=== PATIENT | female | born 1995 | race Caucasian/White ===

== ENCOUNTER 2023-03-11 13:02 | Emergency (ER) | payer OTHER, SELFPAY ==
[2023-03-11 13:05] VITALS: BP 159/102; PULSE 91; RESP 18; TEMP 36.3; O2SAT 100; BMI 31.2
--- NOTE | 2023-03-11 13:05 | ED_ITS ---
HPI - Psych General Chief Complaint: Psychiatric Symptoms <Leslee Duarte NP - Last Filed: 03/11/23 14:29> Stated Complaint: Crisis <Leslee Duarte NP - Last Filed: 03/11/23 14:29> Time Seen by Provider: 03/11/23 13:07 <Leslee Duarte NP - Last Filed: 03/11/23 14:29> Source: patient, RN notes reviewed and old records reviewed <Leslee Duarte NP - Last Filed: 03/11/23 14:29> Mode of arrival: ambulatory <Leslee Duarte NP - Last Filed: 03/11/23 14:29> Limitations: no limitations <Leslee Duarte NP - Last Filed: 03/11/23 14:29> History of Present Illness HPI Narrative: Patient is a 27-year-old female with history of PTSD, MDD, bipolar to presenting to the emergency department from [facility] with suicidal ideation with plan to overdose on her medications as well as self harm in the form of cutting. She also reports poor sleep patterns recently. She denies any thoughts of homicidal ideation. She denies any somatic complaints. <Leslee Duarte NP - Last Filed: 03/11/23 14:29> MD complaint: suicidal ideation <Leslee Duarte NP - Last Filed: 03/11/23 14:29> Onset (ago): day(s) <EDUARDA Yu Last Filed: 03/11/23 14:29> Duration: constant <Leslee Duarte NP - Last Filed: 03/11/23 14:29> History of same: Yes <Leslee Duarte NP - Last Filed: 03/11/23 14:29> Relieving factors: none <Leslee Duarte NP - Last Filed: 03/11/23 14:29> Exacerbating factors: none <Leslee Duarte NP - Last Filed: 03/11/23 14:29> Associated psychiatric symptoms: depression and suicidal ideation <EDUARDA Yu Last Filed: 03/11/23 14:29> Associated symptoms: denies other symptoms <Leslee Duarte NP - Last Filed: 03/11/23 14:29> Treatments prior to arrival: other (in partial program) <EDUARDA Yu Last Filed: 03/11/23 14:29> If self harm: admits thoughts of self harm, has plan and self-inflicted trauma <EDUARDA Yu Last Filed: 03/11/23 14:29> Related Data Home Medications: Home Medications Medication Instructions Recorded Confirmed lamotrigine 100 mg tablet 100 mg PO BID 03/03/23 03/11/23 Previous Rx's Medication Instructions Recorded quetiapine 50 mg tablet,extended 100 mg PO BEDTIME #14 tabs 03/03/23 release 24 hr (Seroquel XR) mirtazapine 7.5 mg tablet 7.5 mg PO BEDTIME #14 tabs 03/09/23 <EDUARDA Yu Last Filed: 03/11/23 14:29> Allergies/Adverse Reactions: Allergies Allergy/AdvReac Type Severity Reaction Status Date / Time amoxicillin Allergy Severe Vomiting Verified 03/11/23 14:37 <Leslee Duarte NP - Last Filed: 03/11/23 14:29> Review of Systems Review of Systems: As per HPI <EDUARDA Yu Last Filed: 03/11/23 14:29> Yes all other systems are reviewed and are negative <EDUARDA Yu Last Filed: 03/11/23 14:29> Constitutional: Constitutional: Reports as per HPI <EDUARDA Yu Last Filed: 03/11/23 14:29> Gastrointestinal: Gastrointestinal: Denies abdominal pain <EDUARDA Yu Last Filed: 03/11/23 14:29> Genitourinary: Genitourinary: Reports no additional female genitourinary complaints <Leslee Duarte NP - Last Filed: 03/11/23 14:29> Musculoskeletal: Musculoskeletal: Denies back pain <EDUARDA Yu Last Filed: 03/11/23 14:29> PMFSH Past Medical History Medical History: Medical History No known health problems <Leslee Duarte NP - Last Filed: 03/11/23 14:29> Social History Social History: Social History Household Members: Family Alcohol intake: current Alcohol intake frequency: holidays/special occasions only Patient Tobacco Use Status: Never used Tobacco Smoked in Last 30 Days: No Use of substances other than those prescribed or required for medical reasons: Yes Substance Use Type: Marijuana Substance Use Frequency: Occasionally Last Used Substance: Unknown Advance Directives: No <Leslee Duarte NP - Last Filed: 03/11/23 14:29> Physical Exam Vital Signs: Vital Signs: Last Vital Signs Temp 97.2 F 03/11/23 21:09 Pulse 70 03/11/23 21:09 Resp 18 03/11/23 21:09 BP 139/97 H 03/11/23 21:09 Pulse Ox 99 03/11/23 21:09 O2 Del Method Room Air 03/11/23 21:09 BMI result Body Mass Index 31.2 <Leslee Duarte NP - Last Filed: 03/11/23 14:29> Vital Signs: Last Vital Signs Temp 97.2 F 03/11/23 21:09 Pulse 70 03/11/23 21:09 Resp 18 03/11/23 21:09 BP 139/97 H 03/11/23 21:09 Pulse Ox 99 03/11/23 21:09 O2 Del Method Room Air 03/11/23 21:09 BMI result Body Mass Index 31.2 <MAIRA Carbajal - Last Filed: 03/11/23 13:09> Vital Signs: Last Vital Signs Temp 97.2 F 03/11/23 21:09 Pulse 70 03/11/23 21:09 Resp 18 03/11/23 21:09 BP 139/97 H 03/11/23 21:09 Pulse Ox 99 03/11/23 21:09 O2 Del Method Room Air 03/11/23 21:09 BMI result Body Mass Index 31.2 <Gaye Stearns MD - Last Filed: 03/11/23 22:16> Const: General: cooperative, healthy appearing and no acute distress <Leslee Duarte NP - Last Filed: 03/11/23 14:29> Orientation/consciousness: oriented to person, oriented to place, oriented to time and patient oriented x3 <Leslee Duarte NP - Last Filed: 03/11/23 14:29> Limitations: no limitations <Leslee Duarte NP - Last Filed: 03/11/23 14:29> HEENT: Head: Yes normocephalic and Yes atraumatic <Leslee Duarte NP - Last Filed: 03/11/23 14:29> Ears: external ears normal <Leslee Duarte NP - Last Filed: 03/11/23 14:29> General nose exam: Normal external nose present <Leslee Duarte NP - Last Filed: 03/11/23 14:29> Face and sinus: Yes face symmetric <Leslee Duarte NP - Last Filed: 02/23 05/17 14:29> Mouth: oropharynx normal and moist mucous membranes <Leslee Duarte NP - Last Filed: 03/11/23 14:29> Throat: Yes uvula midline <Leslee Duarte NP - Last Filed: 03/11/23 14:29> Eyes: Pupils: Equal, round and reactive pupils present <Leslee Duarte NP - Last Filed: 03/11/23 14:29> Neck: Neck: Yes normal visual inspection and Yes supple <Leslee Duarte NP - Last Filed: 03/11/23 14:29> Resp: Effort & Inspection: normal respiratory effort and able to speak in complete sentences <Leslee Duarte NP - Last Filed: 03/11/23 14:29> Auscultation: clear to auscultation bilaterally <Leslee Duarte NP - Last Filed: 03/11/23 14:29> Cardio: Rate: regular rate <Leslee Duarte NP - Last Filed: 03/11/23 14:29> Rhythm: regular rhythm <Leslee Duarte NP - Last Filed: 03/11/23 14:29> Heart sounds: S1 normal heart sound present and S2 normal heart sound present <Leslee Duarte NP - Last Filed: 03/11/23 14:29> GI: Palpation (GI): Soft to palpation and nontender <Leslee Duarte NP - Last Filed: 03/11/23 14:29> Auscultation: normoactive bowel sounds <Leslee Duarte NP - Last Filed: 03/11/23 14:29> : General: Yes no CVA tenderness <Leslee Duarte NP - Last Filed: 03/11/23 14:29> Back/Spine/Pelvis: Back: no CVA tenderness <Leslee Duarte NP - Last Filed: 03/11/23 14:29> Skin: Other: linear scars noted to bilateral arms and legs <Leslee Duarte NP - Last Filed: 03/11/23 14:29> General skin exam: elasticity normal and turgor normal <Leslee Duarte NP - Last Filed: 03/11/23 14:29> Trauma: laceration (superficial lacerations to right leg and left shoulder) <Leslee Duarte NP - Last Filed: 03/11/23 14:29> Neuro: General: oriented to person, oriented to place, oriented to time, patient oriented x3, moves all extremities, no focal motor deficits and CN's II- XI intact bilaterally <Leslee Duarte NP - Last Filed: 03/11/23 14:29> Cranial nerves: Yes Equal, round and reactive pupils present <Leslee Duarte NP - Last Filed: 03/11/23 14:29> Cognition (Neuro): normal cognition <Leslee Duarte NP - Last Filed: 03/11/23 14:29> Extrem: General: Yes full ROM, Yes no pedal edema and Yes no calf tenderness <Leslee Duarte NP - Last Filed: 03/11/23 14:29> Psych: Appearance: grossly normal <Leslee Duarte NP - Last Filed: 03/11/23 14:29> Mental Status: mental status grossly normal <Leslee Duarte NP - Last Fi led: 03/11/23 14:29> Speech and movement: Normal speech and movement present <Leslee Duarte NP - Last Filed: 03/11/23 14:29> Affect: normal affect <Leslee Duarte NP - Last Filed: 03/11/23 14:29> Attitude: cooperative <Leslee Duarte NP - Last Filed: 03/11/23 14:29> Thought process: Normal thought process present <Leslee Duarte NP - Last Filed: 03/11/23 14:29> Thought content: Suicidality present, no homicidality, no delusions, No delusions, no hallucinations and Depressive thoughts present <Leslee Duarte NP - Last Filed: 03/11/23 14:29> Course Course Course Narrative: RME patient is a 27 yo female with a PMH of PTSD, anxiety, and Bipolar 2 who states she has not been feeling safe, and has a hx of self- harm. She states she has been feeling very depressed. She is having thoughts of self-harm, but no SI or HI. She is in a partial program. Plan: Medical clearance and care-team evaluation <MAIRA Carbajal - Last Filed: 03/11/23 13:09> RME patient is a 27 yo female with a PMH of PTSD, anxiety, and Bipolar 2 w ho states she has not been feeling safe, and has a hx of self- harm. She states she has been feeling very depressed. She is having thoughts of self-harm, but no SI or HI. She is in a partial program. Plan: Medical clearance and care-team evaluation Care team evaluated the patient, patient is not suicidal, patient has had an urge to cut herself to release pressure. Patient no longer has the urge. Patient will be going to partial rehab tomorrow. Family on board with plan. Patient agrees with plan as well. <Gaye Stearns MD - Last Filed: 03/11/23 22:16> Medical Decision Making Medical Decision Making MDM Narrative: Patient is a 27-year-old female with history of PTSD, MDD, bipolar to presenting to the emergency department from [facility] with suicidal ideation with plan to overdose on her medications as well as self harm in the form of cutting. On exam patient is awake, A+Ox3, calm and cooperative, VS WNL, normal neuro exam without focal deficits. Urinalysis reveals 3+ leukocytes and 2+ blood, however patient denies any urinary symptoms, abdominal pain, back or flank pain, fever. Mildly elevated ALT, labs otherwise unremarkable, utox negative. Order placed for Care team evaluation. Patient medically cleared and placed in physician obs ervation. <Leslee Duarte NP - Last Filed: 03/11/23 14:29> Differential Diagnosis Differential Diagnoses: The differential diagnosis associated with the presentation includes <Domonique Duarte NP - Last Filed: 03/11/23 14:29> suicidal ideation, thoughts of self harm, bipolar disorder <Leslee Duarte NP - Last Filed: 03/11/23 14:29> Admission/Observation Consideration of admission/observation: Escalation of care including admission/observation considered <Leslee Duarte NP - Last Filed: 03/11/23 14:29> Consult Healthcare Provider Management of the patient was discussed with: Water Treatment Specialist (Care team) <Leslee Duarte NP - Last Filed: 03/11/23 14:29> Lab Data MDM Lab Attestation statement: I reviewed the patient's lab results. <Leslee Duarte NP - Last Filed: 03/11/23 14:29> Result Diagrams: 03/11/23 13:50 03/11/23 13:50 <Leslee Duarte NP - Last Filed: 03/11/23 14:29> Labs: Lab Results 03/11/23 03/11/23 03/11/23 Range/Units 13:21 13:21 13:22 WBC (4.8-10.8) X10*3/uL RBC (4.20-5.50) X10*6/uL Hgb (12.0-16.0) g/dl Hct (37.0-47.0) % MCV (80.0-98.0) fL MCH (27.0-33.0) pg MCHC (31.0-35.0) g/dl RDW (11.0-16.0) % Plt Count (160-400) X10*3/uL MPV (9.4-12.3) fL Immature Gran % (Auto) (0.0-0.4) % Neut % (Auto) (45-73) % Lymph % (Auto) (20-40) % Mcdonald % (Auto) (2-11) % Eos % (Auto) (0-4) % Baso % (Auto) (0-2) % Lymph # (Auto) (1.2-4.9) X10*3/uL Mcdonald # (Auto) (0.1-1.2) X10*3/uL Eos # (Auto) (0.0-0.4) X10*3/uL Baso # (Auto) (0.0-0.2) X10*3/uL Abs Immat Gran (auto) (0.00-0.03) X10*3/uL Absolute Neuts (auto) (2.0-8.3) x10*3/uL Absolute Nucleated RBC (0.0-0.012) X10*3/uL Nucleated RBC % (auto) (0.0-0.2) /100WBC Sodium (135-145) mmol/L Potassium (3.3-5.1) mmol/L Chloride (96-108) mmol/L Carbon Dioxide (22-29) mmol/L Anion Gap (12-20) BUN (9-16) mg/dL Creatinine (0.5-1.4) mg/dL Estim Creat Clear Calc Estimated GFR Random Glucose (60-115) mg/dL Calcium (8.4-10.2) mg/dL Magnesium (1.6-2.6) mg/dL Total Bilirubin (0.0-1.0) mg/dL Direct Bilirubin (0.0-0.5) mg/dL AST (5-31) U/L ALT (0-31) U/L Alkaline Phosphatase (39-117) U/L Total Protein (6.5-8.0) g/dL Albumin (3.5-5.0) g/dL Urine Color Yellow Urine Appearance Cloudy Urine pH 6.0 (5.0-9.0) Ur Specific [place] 1.020 (1.005-1.025) Urine Protein Negative (Neg-Trace) mg/dL Urine Glucose (UA) Negative (Negative) mg/dL Urine Ketones 40 (Negative) mg/dL Urine Blood Moderate (2+) H (Negative) Urine Nitrite Negative (Negative) Ur Leukocyte Esterase Large (3+) H (Negative) Urine RBC 11-20 H (0-2) /HPF Urine WBC >50 H (0-5) /HPF Ur Squamous Epith Cells 6-10 (0-2) /HPF Urine Bacteria 3+ (None Seen) Hyaline Casts 3-5 (0-2) /LPF Urine Test (NEGATIVE) Urine Opiates Screen Not Detected (Not Detect) Urine Fentanyl Screen Not Detected (Not Detect) Ur Barbiturates Screen Not Detected (Not Detect) Ur Phencyclidine Scrn Not Detected (Not Detect) Ur Amphetamines Screen Not Detected (Not Detect) U Benzodiazepines Scrn Not Detected (Not Detect) Urine Cocaine Screen Not Detected (Not Detect) U Marijuana (THC) Screen Not Detected (Not Detect) Ethyl Alcohol mg/dL COVID-19 (DARSHANA) Negative (Negative) COVID-19 Clin Com See Note 03/11/23 03/11/23 03/11/23 Range/Units 13:22 13:50 13:50 WBC 5.0 (4.8-10.8) X10*3/uL RBC 4.28 (4.20-5.50) X10*6/uL Hgb 12.2 (12.0-16.0) g/dl Hct 35.8 L (37.0-47.0) % MCV 83.6 (80.0-98.0) fL MCH 28.5 (27.0-33.0) pg MCHC 34.1 (31.0-35.0) g/dl RDW 14.4 (11.0-16.0) % Plt Count 174 (160-400) X10*3/uL MPV 10.9 (9.4-12.3) fL Immature Gran % (Auto) 0.2 (0.0-0.4) % Neut % (Auto) 70.1 (45-73) % Lymph % (Auto) 26.5 (20-40) % Mcdonald % (Auto) 3.0 (2-11) % Eos % (Auto) 0.0 (0-4) % Baso % (Auto) 0.2 (0-2) % Lymph # (Auto) 1.3 (1.2-4.9) X10*3/uL Mcdonald # (Auto) 0.2 (0.1-1.2) X10*3/uL Eos # (Auto) 0.0 (0.0-0.4) X10*3/uL Baso # (Auto) 0.0 (0.0-0.2) X10*3/uL Abs Immat Gran (auto) 0.01 (0.00-0.03) X10*3/uL Absolute Neuts (auto) 3.5 (2.0-8.3) x10*3/uL Absolute Nucleated RBC 0.000 (0.0-0.012) X10*3/uL Nucleated RBC % (auto) 0.0 (0.0-0.2) /100WBC Sodium 140 (135-145) mmol/L Potassium 3.7 (3.3-5.1) mmol/L Chloride 106 (96-108) mmol/L Carbon Dioxide 24 (22-29) mmol/L Anion Gap 14 (12-20) BUN 8 L (9-16) mg/dL Creatinine 0.89 (0.5-1.4) mg/dL Estim Creat Clear Calc 96.9 Estimated GFR > 60 Random Glucose 122 H (60-115) mg/dL Calcium 9.7 (8.4-10.2) mg/dL Magnesium 1.9 (1.6-2.6) mg/dL Total Bilirubin 0.9 (0.0-1.0) mg/dL Direct Bilirubin 0.2 (0.0-0.5) mg/dL AST 30 (5-31) U/L ALT 45 H (0-31) U/L Alkaline Phosphatase 56 (39-117) U/L Total Protein 7.5 (6.5-8.0) g/dL Albumin 4.9 (3.5-5.0) g/dL Urine Color Urine Appearance Urine pH (5.0-9.0) Ur Specific [place] (1.005-1.025) Urine Protein (Neg-Trace) mg/dL Urine Glucose (UA) (Negative) mg/dL Urine Ketones (Negative) mg/dL Urine Blood (Negative) Urine Nitrite (Negative) Ur Leukocyte Esterase (Negative) Urine RBC (0-2) /HPF Urine WBC (0-5) /HPF Ur Squamous Epith Cells (0-2) /HPF Urine Bacteria (None Seen) Hyaline Casts (0-2) /LPF Urine Test NEGATIVE (NEGATIVE) Urine Opiates Screen (Not Detect) Urine Fentanyl Screen (Not Detect) Ur Barbiturates Screen (Not Detect) Ur Phencyclidine Scrn (Not Detect) Ur Amphetamines Screen (Not Detect) U Benzodiazepines Scrn (Not Detect) Urine Cocaine Screen (Not Detect) U Marijuana (THC) Screen (Not Detect) Ethyl Alcohol < 10 mg/dL COVID-19 (DARSHANA) (Negative) COVID-19 Clin Com <Leslee Duarte NP - Last Filed: 03/11/23 14:29> Lab Results 03/11/23 03/11/23 03/11/23 Range/Units 13:21 13:21 13:22 WBC (4.8-10.8) X10*3/uL RBC (4.20-5.50) X10*6/uL Hgb (12.0-16.0) g/dl Hct (37.0-47.0) % MCV (80.0-98.0) fL MCH (27.0-33.0) pg MCHC (31.0-35.0) g/dl RDW (11.0-16.0) % Plt Count (160-400) X10*3/uL MPV (9.4-12.3) fL Immature Gran % (Auto) (0.0-0.4) % Neut % (Auto) (45-73) % Lymph % (Auto) (20-40) % Mcdonald % (Auto) (2-11) % Eos % (Auto) (0-4) % Baso % (Auto) (0-2) % Lymph # (Auto) (1.2-4.9) X10*3/uL Mcdonald # (Auto) (0.1-1.2) X10*3/uL Eos # (Auto) (0.0-0.4) X10*3/uL Baso # (Auto) (0.0-0.2) X10*3/uL Abs Immat Gran (auto) (0.00-0.03) X10*3/uL Absolute Neuts (auto) (2.0-8.3) x10*3/uL Absolute Nucleated RBC (0.0-0.012) X10*3/uL Nucleated RBC % (auto) (0.0-0.2) /100WBC Sodium (135-145) mmol/L Potassium (3.3-5.1) mmol/L Chloride (96-108) mmol/L Carbon Dioxide (22-29) mmol/L Anion Gap (12-20) BUN (9-16) mg/dL Creatinine (0.5-1.4) mg/dL Estim Creat Clear Calc Estimated GFR Random Glucose (60-115) mg/dL Calcium (8.4-10.2) mg/dL Magnesium (1.6-2.6) mg/dL Total Bilirubin (0.0-1.0) mg/dL Direct Bilirubin (0.0-0.5) mg/dL AST (5-31) U/L ALT (0-31) U/L Alkaline Phosphatase (39-117) U/L Total Protein (6.5-8.0) g/dL Albumin (3.5-5.0) g/dL Urine Color Yellow Urine Appearance Cloudy Urine pH 6.0 (5.0-9.0) Ur Specific [place] 1.020 (1.005-1.025) Urine Protein Negative (Neg-Trace) mg/dL Urine Glucose (UA) Negative (Negative) mg/dL Urine Ketones 40 (Negative) mg/dL Urine Blood Moderate (2+) H (Negative) Urine Nitrite Negative (Negative) Ur Leukocyte Esterase Large (3+) H (Negative) Urine RBC 11-20 H (0-2) /HPF Urine WBC >50 H (0-5) /HPF Ur Squamous Epith Cells 6-10 (0-2) /HPF Urine Bacteria 3+ (None Seen) Hyaline Casts 3-5 (0-2) /LPF Urine Test (NEGATIVE) Urine Opiates Screen Not Detected (Not Detect) Urine Fentanyl Screen Not Detected (Not Detect) Ur Barbiturates Screen Not Detected (Not Detect) Ur Phencyclidine Scrn Not Detected (Not Detect) Ur Amphetamines Screen Not Detected (Not Detect) U Benzodiazepines Scrn Not Detected (Not Detect) Urine Cocaine Screen Not Detected (Not Detect) U Marijuana (THC) Screen Not Detected (Not Detect) Ethyl Alcohol mg/dL COVID-19 (DARSHANA) Negative (Negative) COVID-19 Clin Com See Note 03/11/23 03/11/23 03/11/23 Range/Units 13:22 13:50 13:50 WBC 5.0 (4.8-10.8) X10*3/uL RBC 4.28 (4.20-5.50) X10*6/uL Hgb 12.2 (12.0-16.0) g/dl Hct 35.8 L (37.0-47.0) % MCV 83.6 (80.0-98.0) fL MCH 28.5 (27.0-33.0) pg MCHC 34.1 (31.0-35.0) g/dl RDW 14.4 (11.0-16.0) % Plt Count 174 (160-400) X10*3/uL MPV 10.9 (9.4-12.3) fL Immature Gran % (Auto) 0.2 (0.0-0.4) % Neut % (Auto) 70.1 (45-73) % Lymph % (Auto) 26.5 (20-40) % Mcdonald % (Auto) 3.0 (2-11) % Eos % (Auto) 0.0 (0-4) % Baso % (Auto) 0.2 (0-2) % Lymph # (Auto) 1.3 (1.2-4.9) X10*3/uL Mcdonald # (Auto) 0.2 (0.1-1.2) X10*3/uL Eos # (Auto) 0.0 (0.0-0.4) X10*3/uL Baso # (Auto) 0.0 (0.0-0.2) X10*3/uL Abs Immat Gran (auto) 0.01 (0.00-0.03) X10*3/uL Absolute Neuts (auto) 3.5 (2.0-8.3) x10*3/uL Absolute Nucleated RBC 0.000 (0.0-0.012) X10*3/uL Nucleated RBC % (auto) 0.0 (0.0-0.2) /100WBC Sodium 140 (135-145) mmol/L Potassium 3.7 (3.3-5.1) mmol/L Chloride 106 (96-108) mmol/L Carbon Dioxide 24 (22-29) mmol/L Anion Gap 14 (12-20) BUN 8 L (9-16) mg/dL Creatinine 0.89 (0.5-1.4) mg/dL Estim Creat Clear Calc 96.9 Estimated GFR > 60 Random Glucose 122 H (60-115) mg/dL Calcium 9.7 (8.4-10.2) mg/dL Magnesium 1.9 (1.6-2.6) mg/dL Total Bilirubin 0.9 (0.0-1.0) mg/dL Direct Bilirubin 0.2 (0.0-0.5) mg/dL AST 30 (5-31) U/L ALT 45 H (0-31) U/L Alkaline Phosphatase 56 (39-117) U/L Total Protein 7.5 (6.5-8.0) g/dL Albumin 4.9 (3.5-5.0) g/dL Urine Color Urine Appearance Urine pH (5.0-9.0) Ur Specific [place] (1.005-1.025) Urine Protein (Neg-Trace) mg/dL Urine Glucose (UA) (Negative) mg/dL Urine Ketones (Negative) mg/dL Urine Blood (Negative) Urine Nitrite (Negative) Ur Leukocyte Esterase (Negative) Urine RBC (0-2) /HPF Urine WBC (0-5) /HPF Ur Squamous Epith Cells (0-2) /HPF Urine Bacteria (None Seen) Hyaline Casts (0-2) /LPF Urine Test NEGATIVE (NEGATIVE) Urine Opiates Screen (Not Detect) Urine Fentanyl Screen (Not Detect) Ur Barbiturates Screen (Not Detect) Ur Phencyclidine Scrn (Not Detect) Ur Amphetamines Screen (Not Detect) U Benzodiazepines Scrn (Not Detect) Urine Cocaine Screen (Not Detect) U Marijuana (THC) Screen (Not Detect) Ethyl Alcohol < 10 mg/dL COVID-19 (DARSHANA) (Negative) COVID-19 Clin Com <MAIRA Carbajal - Last Filed: 03/11/23 13:09> Lab Results 03/11/23 03/11/23 03/11/23 Range/Units 13:21 13:21 13:22 WBC (4.8-10.8) X10*3/uL RBC (4.20-5.50) X10*6/uL Hgb (12.0-16.0) g/dl Hct (37.0-47.0) % MCV (80.0-98.0) fL MCH (27.0-33.0) pg MCHC (31.0-35.0) g/dl RDW (11.0-16.0) % Plt Count (160-400) X10*3/uL MPV (9.4-12.3) fL Immature Gran % (Auto) (0.0-0.4) % Neut % (Auto) (45-73) % Lymph % (Auto) (20-40) % Mcdonald % (Auto) (2-11) % Eos % (Auto) (0-4) % Baso % (Auto) (0-2) % Lymph # (Auto) (1.2-4.9) X10*3/uL Mcdonald # (Auto) (0.1-1.2) X10*3/uL Eos # (Auto) (0.0-0.4) X10*3/uL Baso # (Auto) (0.0-0.2) X10*3/uL Abs Immat Gran (auto) (0.00-0.03) X10*3/uL Absolute Neuts (auto) (2.0-8.3) x10*3/uL Absolute Nucleated RBC (0.0-0.012) X10*3/uL Nucleated RBC % (auto) (0.0-0.2) /100WBC Sodium (135-145) mmol/L Potassium (3.3-5.1) mmol/L Chloride (96-108) mmol/L Carbon Dioxide (22-29) mmol/L Anion Gap (12-20) BUN (9-16) mg/dL Creatinine (0.5-1.4) mg/dL Estim Creat Clear Calc Estimated GFR Random Glucose (60-115) mg/dL Calcium (8.4-10.2) mg/dL Magnesium (1.6-2.6) mg/dL Total Bilirubin (0.0-1.0) mg/dL Direct Bilirubin (0.0-0.5) mg/dL AST (5-31) U/L ALT (0-31) U/L Alkaline Phosphatase (39-117) U/L Total Protein (6.5-8.0) g/dL Albumin (3.5-5.0) g/dL Urine Color Yellow Urine Appearance Cloudy Urine pH 6.0 (5.0-9.0) Ur Specific [place] 1.020 (1.005-1.025) Urine Protein Negative (Neg-Trace) mg/dL Urine Glucose (UA) Negative (Negative) mg/dL Urine Ketones 40 (Negative) mg/dL Urine Blood Moderate (2+) H (Negative) Urine Nitrite Negative (Negative) Ur Leukocyte Esterase Large (3+) H (Negative) Urine RBC 11-20 H (0-2) /HPF Urine WBC >50 H (0-5) /HPF Ur Squamous Epith Cells 6-10 (0-2) /HPF Urine Bacteria 3+ (None Seen) Hyaline Casts 3-5 (0-2) /LPF Urine Test (NEGATIVE) Urine Opiates Screen Not Detected (Not Detect) Urine Fentanyl Screen Not Detected (Not Detect) Ur Barbiturates Screen Not Detected (Not Detect) Ur Phencyclidine Scrn Not Detected (Not Detect) Ur Amphetamines Screen Not Detected (Not Detect) U Benzodiazepines Scrn Not Detected (Not Detect) Urine Cocaine Screen Not Detected (Not Detect) U Marijuana (THC) Screen Not Detected (Not Detect) Ethyl Alcohol mg/dL COVID-19 ([facility]) Negative (Negative) COVID-19 Clin Com See Note 03/11/23 03/11/23 03/11/23 Range/Units 13:22 13:50 13:50 WBC 5.0 (4.8-10.8) X10*3/uL RBC 4.28 (4.20-5.50) X10*6/uL Hgb 12.2 (12.0-16.0) g/dl Hct 35.8 L (37.0-47.0) % MCV 83.6 (80.0-98.0) fL MCH 28.5 (27.0-33.0) pg MCHC 34.1 (31.0-35.0) g/dl RDW 14.4 (11.0-16.0) % Plt Count 174 (160-400) X10*3/uL MPV 10.9 (9.4-12.3) fL Immature Gran % (Auto) 0.2 (0.0-0.4) % Neut % (Auto) 70.1 (45-73) % Lymph % (Auto) 26.5 (20-40) % Mcdonald % (Auto) 3.0 (2-11) % Eos % (Auto) 0.0 (0-4) % Baso % (Auto) 0.2 (0-2) % Lymph # (Auto) 1.3 (1.2-4.9) X10*3/uL Mcdonald # (Auto) 0.2 (0.1-1.2) X10*3/uL Eos # (Auto) 0.0 (0.0-0.4) X10*3/uL Baso # (Auto) 0.0 (0.0-0.2) X10*3/uL Abs Immat Gran (auto) 0.01 (0.00-0.03) X10*3/uL Absolute Neuts (auto) 3.5 (2.0-8.3) x10*3/uL Absolute Nucleated RBC 0.000 (0.0-0.012) X10*3/uL Nucleated RBC % (auto) 0.0 (0.0-0.2) /100WBC Sodium 140 (135-145) mmol/L Potassium 3.7 (3.3-5.1) mmol/L Chloride 106 (96-108) mmol/L Carbon Dioxide 24 (22-29) mmol/L Anion Gap 14 (12-20) BUN 8 L (9-16) mg/dL Creatinine 0.89 (0.5-1.4) mg/dL Estim Creat Clear Calc 96.9 Estimated GFR > 60 Random Glucose 122 H (60-115) mg/dL Calcium 9.7 (8.4-10.2) mg/dL Magnesium 1.9 (1.6-2.6) mg/dL Total Bilirubin 0.9 (0.0-1.0) mg/dL Direct Bilirubin 0.2 (0.0-0.5) mg/dL AST 30 (5-31) U/L ALT 45 H (0-31) U/L Alkaline Phosphatase 56 (39-117) U/L Total Protein 7.5 (6.5-8.0) g/dL Albumin 4.9 (3.5-5.0) g/dL Urine Color Urine Appearance Urine pH (5.0-9.0) Ur Specific [place] (1.005-1.025) Urine Protein (Neg-Trace) mg/dL Urine Glucose (UA) (Negative) mg/dL Urine Ketones (Negative) mg/dL Urine Blood (Negative) Urine Nitrite (Negative) Ur Leukocyte Esterase (Negative) Urine RBC (0-2) /HPF Urine WBC (0-5) /HPF Ur Squamous Epith Cells (0-2) /HPF Urine Bacteria (None Seen) Hyaline Casts (0-2) /LPF Urine Test NEGATIVE (NEGATIVE) Urine Opiates Screen (Not Detect) Urine Fentanyl Screen (Not Detect) Ur Barbiturates Screen (Not Detect) Ur Phencyclidine Scrn (Not Detect) Ur Amphetamines Screen (Not Detect) U Benzodiazepines Scrn (Not Detect) Urine Cocaine Screen (Not Detect) U Marijuana (THC) Screen (Not Detect) Ethyl Alcohol < 10 mg/dL COVID-19 ([facility]) (Negative) COVID-19 Clin Com <Gaye Stearns MD - Last Filed: 03/11/23 22:16> External Record Review External record reviewed: Inpatient record, Office record and Outpatient record <Leslee Duarte NP - Last Filed: 03/11/23 14:29> Chronic Conditions Patient?s care impacted by: Other (PTSD, IRENE, Bipolar disorder) <Leslee Duarte NP - Last Filed: 03/11/23 14:29> Discharge Plan Discharge Clinical Impression: Acute anxiety <Leslee Duarte NP - Last Filed: 03/11/23 14:29> Patient Disposition: Still a Patient <Leslee Duarte NP - Last Filed: 03/11/23 14:29> Prescriptions: No Action quetiapine [Seroquel XR] 50 mg tablet extended release 24 hr 100 mg PO BEDTIME Qty: 14 0RF lamotrigine 100 mg tablet 100 mg PO BID mirtazapine 7.5 mg tablet 7.5 mg PO BEDTIME Qty: 14 0RF Rx Instructions: Pt states med to start this evening <Leslee Duarte NP - Last Filed: 03/11/23 14:29> Interventions: [place]-Suicide Risk Severity Scale Last Done: 03/11/23 13:48 <Leslee Duarte NP - Last Filed: 03/11/23 14:29>
[2023-03-11 13:40] LABS: Appearance Urine Cloudy; Color Urine Yellow; Glucose Urine UA Negative (Negative); Leukocyte Esterase Urine Large (3+) (Negative); Nitrite Urine Negative (Negative); UMIC TRIGGER UACC YES; Urine Blood Moderate (2+) (Negative); Urine Ketones 40 mg/dL (Negative); Urine Protein Negative (Neg-Trace)
--- NOTE | 2023-03-11 13:40 | PC.NURSE ---
Pt brought in by Hilda from Partial Program. Hilda reporting Darren has SI with plan to OD. Pt reports she is on leave from work and attending Partial program due to increased depression, SI, and SH with Hx of cutting. Scars are noted as well as recent cuts to R leg and L Shoulder. She has a decrease in appetite but ate lunch this afternoon. Pt states she is not sleeping much explaining a good nights sleep is about 4hrs., but she has not been getting that lately. She denies VH, AH. Her mood is stable with no mitchel noted. Sister is currently at bedside and labs are being obtained.
[2023-03-11 13:41] LABS: UPreg QC Valid YES; Urine Pregnancy NEGATIVE (NEGATIVE)
[2023-03-11 13:50] LABS: Bacteria Urine 3+ (None Seen); UACC Culture Trigger YES; WBC Urine >50 /HPF (0-5)
[2023-03-11 13:55] LABS: Basophils Percent Auto 0.2 % (0-2); Hematocrit 35.8 % (37.0-47.0); Hemoglobin 12.2 g/dl (12.0-16.0); Imm Gran Abs Auto 0.01 X10*3/uL (0.00-0.03); Imm Gran Pct Auto 0.2 % (0.0-0.4); Lymphocytes Absolute Auto 1.3 X10*3/uL (1.2-4.9); Lymphocytes Percent Auto 26.5 % (20-40); MANUAL DIFF FLAG NO; Mean Corpuscular HGB Conc 34.1 g/dl (31.0-35.0); Mean Corpuscular Hemoglobin 28.5 pg (27.0-33.0); Mean Corpuscular Volume 83.6 fL (80.0-98.0); Mean Platelet Volume 10.9 fL (9.4-12.3); Monocytes Absolute Auto 0.2 X10*3/uL (0.1-1.2); Neutrophils Absolute Auto 3.5 x10*3/uL (2.0-8.3); Neutrophils Percent Auto 70.1 % (45-73); Platelet Count 174 X10*3/uL (160-400); Red Blood Count 4.28 X10*6/uL (4.20-5.50); Red Cell Distribution Width 14.4 % (11.0-16.0)
[2023-03-11 14:04] LABS: Amphetamine Screen Urine Not Detected (Not Detect); Barbiturates, Urine Not Detected (Not Detect); Benzodiazepines Screen Urine Not Detected (Not Detect); Cannabinoid Screen Urine Not Detected (Not Detect); Cocaine Screen Urine Not Detected (Not Detect); Fentanyl, urine Not Detected (Not Detect); Opiate Screen Urine Not Detected (Not Detect); Phencyclidine Screen Urine Not Detected (Not Detect)
[2023-03-11 14:05] LABS: COVID-19 Test Negative (Negative); IDNOW Serial# 08D9AD1C
[2023-03-11 14:22] LABS: Alanine Aminotransferase 45 U/L (0-31); Albumin Level 4.9 g/dL (3.5-5.0); Alkaline Phosphatase 56 U/L (39-117); Anion Gap 14 (12-20); Aspartate Amino Transferase 30 U/L (5-31); Bilirubin Direct 0.2 mg/dL (0.0-0.5); Bilirubin Total 0.9 mg/dL (0.0-1.0); Blood Urea Nitrogen 8 mg/dL (9-16); Calcium 9.7 mg/dL (8.4-10.2); Carbon Dioxide 24 mmol/L (22-29); Chloride 106 mmol/L (96-108); Creatinine Clr Calc Pharmacy 96.9; Estimated Glomerular Filt Rate > 60; Ethanol < 10 mg/dL; Glucose Random 122 mg/dL (60-115); Magnesium 1.9 mg/dL (1.6-2.6); Potassium 3.7 mmol/L (3.3-5.1); Sodium 140 mmol/L (135-145); Total Protein 7.5 g/dL (6.5-8.0)
[2023-03-11 21:09] VITALS: BP 139/97; PULSE 70; RESP 18; TEMP 36.2; O2SAT 99
== END 2023-03-11 22:58 | disposition home or self-care (01) ==
PROVIDERS: Physician Assistant; Emergency Provider Student in an Organized Health Care Education/Training Program
DX: F41.1 Generalized anxiety disorder (principal); F43.0 Acute stress reaction; Z20.822 Contact with and (suspected) exposure to COVID-19; Z20.828 Contact with and (suspected) exposure to other viral communicable diseases; Z79.899 Other long term (current) drug therapy
CPT/HCPCS: 80048; 80076; 80307; 81001; 81025; 83735; 85025; 87086; 87635; 99284; 99285; S9485

== ENCOUNTER 2023-03-24 10:45 | Outpatient (RCR) | payer OTHER, SELFPAY ==
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
[2023-03-03 13:02] VITALS: BP 140/80; PULSE 72; TEMP 37.1
--- NOTE | 2023-03-03 13:35 | PC.ADMIT ---
Patient is a 27 year old female who was referred to PHP by her PCP d/t increased depression and anxiety sxs. Patient reports trigger to her symptoms is when she started to talk about her trauma with her therapist. Reports poor appetite, trying to eat at least one meal a day. Reports 15 lb weight loss in the past few weeks. Reports poor sleep, waking up every hour for 5-10 minutes. Denied any substance issues. Patient is alert and oriented x4. She is calm and cooperative. Presented with depressed mood and anxious affect. Reports passive SI, denied plan or intent to kill herself. Patient reports history of self harm by cutting her legs and arms superficially. Last cut herself was yesterday. Asked what she could do instead of cutting herself when she is feeling strong emotions and she stated go out for a walk, calling her best friend, working out. I reviewed patient's safety plan with her and gave her a copy of her plan if needed. Medications reconciled with patient and patient's pharmacy. Patient reports taking medications as prescribed.
--- NOTE | 2023-03-05 07:20 | HO.PHP ---
Clients case was reviewed and opened today in treatment team.
--- NOTE | 2023-03-06 07:17 | HO.PHP ---
Clients case was reviewed and opened today in treatment team.
--- NOTE | 2023-03-09 10:07 | P.PNPSP_ITS ---
Subjective Subjective Date of Service: 03/09/23 Reason For Visit: MDD Medical Problems Affecting Mental Status: No Interim History: 27 year old female follow up visit today Bipolar 2 disorder with current depression symptoms, hx IRENE and PTSD. Continued concerns with dysphoric mood and affect. Poor sleep waking frequently (hourly). Poor appetite and eating habits. Engages in self harm/cutting. Endorses SI without intent or solid plan. Medication Compliance: Yes Side effects from medications: No Attending Groups: Yes Review of Systems Acute medical concerns: No Medical Review of Systems: unchanged Review of Systems Review of Systems Yes all other systems are reviewed and are negative Constitutional: Reports no additional constitutional complaints Mental Status Exam Mental Status Exam Narrative: Well-developed, well-nourished, in NAD. General appearance, well groomed, appropriately dressed for season and age. Musculoskeletal: No involuntary movements noted, motor activity calm, posture within normal limits. Manner/behavior: Calm, cooperative. Speech: Fluent, unimpaired, normal rate volume and rhythm. Mood: Anxious, depressed. Affect: Mood congruent. Thought process/associations: Linear Thought content: Normal Delusions: None. Hallucinations: None. Suicidality/self destructive behavior: recent SIB by cutting. Passive SI currently, no intent or plan Homicidality/violence: none. Reliability: Good Judgment: Fair Insight: Fair MSK exam: Normal ambulation, no cogwheeling or rigidity noted. Patient Appearance: Well Grooomed Patient Orientation: Person, Place, Time and Situation Level of Consciousness: Appropriate Patient Behavior: Appropriate and Good Eye Contact Mood Description: Depressed Affect Description: Depressed and Anxious Patient Cognition Impaired: No Ability to Follow Directions: Excellent Speech Pattern: Clear Memory Description: Intact Hallucinations: None Delusions: Not Present Thought Process: Intact Thought Content: positive for Intact and positive for Suicidal Ideation (passive, no intent/plan) Depressive Symptoms: Increased Anxiety, Difficulty Sleeping (multiple awakenings, sleeping only 1-2 H at a time), Changes in Appetite (decreased, poor eating habits), Loss of Int. in Activity, Hopelessness, Unhappiness, Increased Fatigue, Thoughts of /Suicide, Loss of Energy and Difficulty Concentrating Judgement: Fair Assessment & Plan Assessment & Plan (1) Bipolar 2 disorder, major depressive episode: Status: Acute Code(s): F31.81 - Bipolar II disorder Assessment and Plan: 27 year old female follow up visit today Bipolar 2 disorder with current depression symptoms, hx IRENE and PTSD. Continued concerns with dysphoric mood and affect. Poor sleep waking frequently (hourly). Poor appetite and eating habits. Engages in self harm/cutting. Endorses SI without intent or solid plan. Discussed current medications. Plan to add Remeron 7.5 mg at HS to assist with sleep and mood; discussed risks and benefits. Has crisis numbers for as needed use. Recent cutting; denies need for medical intervention. Discussed addition of antidepressant use and risk of activation. continue to monitor mood closely. (2) PTSD (post-traumatic stress disorder): Status: Acute Code(s): F43.10 - Post-traumatic stress disorder, unspecified (3) Generalized anxiety disorder: Status: Acute Code(s): F41.1 - Generalized anxiety disorder Plan 1. Continue with current [facility] plan of care. 2. Continue with current medication regimen with the addition of Remeron at HS. 3. Follow-up as per protocol. Patient educated on: diagnosis, medication risk/benefits and therapeutic strategies Informed Consent: understands Reason for contiued partial hosp. stay Substantial Risk for: harm to self, inability to function and rapid decompensation Certification I certify that partial hospital treatment is medically necessary due to the symptoms and problems resulting from the patient's mental illness and the failure to treat the patient at the partial hospital level of care would likely result in the patient requiring inpatient psychiatric care which could not be prevented at a less intensive level of care. Total time managing care of this patient today _20___ minutes. Discharge Plan Discharge Attending provider: Adan Abreu Medications: New quetiapine [Seroquel XR] 50 mg tablet extended release 24 hr 100 mg PO BEDTIME Qty: 14 0RF mirtazapine 7.5 mg tablet 7.5 mg PO BEDTIME Qty: 14 0RF quetiapine [Seroquel XR] 50 mg tablet extended release 24 hr 100 mg PO BEDTIME Qty: 30 0RF No Action lamotrigine 100 mg tablet 100 mg PO BID
--- NOTE | 2023-03-09 14:07 | HO.PHP ---
[facility] staff followed up with Darren due to her making a comment in the third group around actively engaging in self-harming behaviors. [facility] assessed for safety, in which Darren noted she has no intent to commit suicide with self-harm and mentioned that she does it to feel pain and it is something she has control over. [facility] staff and Darren discussed healthy coping skills such as snapping a rubber band and ice cubes. Darren had expressed utilizing the ice cube. Darren is willing to access these coping skills prior to acting on self-harming to reduce those negative feelings. [facility] staff explored if Darren has a good support system that could also help keep her safe from self-harming. Darren identified her ex boyfriend and her half sister's mother's . Darren disclosed she can't discuss this with her half sister due to her struggling with something similar in the past and does not want to trigger her. Darren was provided with resources she can utilize if she is feeling unsafe. Darren was receptive and informed the staff member that she will be safe.
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
--- NOTE | 2023-03-11 12:54 | PC.NURSE ---
Patient reported to [facility] staff Tara that she is having SI with plan to overdose on her medications and wants to be assessed by crisis. Patient also reports that she called her sister who is going to meet her in the emergency room. Nurse to Nurse done with Malu OCHOA in the [facility]. There is bed avaiability. Patient is voluntary and help seeking. [facility] staff Mecca Garrison escorting patient to [facility] for evaluation. Celia Alexander contacting Care Team Samira Thakkar
--- NOTE | 2023-03-12 15:10 | HO.PHP ---
Darren informed [facility] staff that she followed through with the suggestion by the staff member of having a support come over to remove the sharps out of her home. [facility] praised Darren for being able to do that. Darren also asked the staff member if she can extend her time within the program. [facility] staff mentioned she needs to further explore if she has time to do that and will touch base with her tomorrow. Darren was receptive.
[2023-03-18 12:55] VITALS: BP 132/82; PULSE 80
--- NOTE | 2023-03-18 14:51 | HO.PHP ---
PHP staff checked in with Darren after group 1 to review how she is doing since she appeared to be struggling. Darren noted that she is having a challenging time and feels that she is struggling to get out of her depression. PHP staff explored safety. Darren did note that she had engaged in self-harming behaviors by cutting with a knife yesterday. Darren mentioned she has always had a plan but no intent. Darren mentioned she will be safe. PHP staff explored groups that she could engage in to help with healthy coping skills. Darren was interested in learning more. PHP staff was receptive and noted she will provide her with resources. Darren was receptive.
--- NOTE | 2023-03-18 14:57 | HO.PHP ---
[facility] staff met with Darren around 11:00 AM to review resources around outside groups such as DBT and Bipolar groups. [facility] staff also explored with Darren if she feels ready to do the trauma work through EMDR and suggested engaging in a DBT group prior to EMDR so she has the necessary tools needed to manage difficult feelings and emotions. Darren mentioned that she starts with her new therapist next at 1 PM and the therapist stated that she likes to get to know the client prior to engaging in EMDR. PHP staff was receptive. Darren did note not feeling ready at this time to process the trauma fully. [facility] staff explored if Darren would like to partake in the Full DBT group through [facility]. Darren mentioned she would like to do so. PHP staff gathered information for a release to place a referral. Darren talked about what was said in the first group that was challenging for her and discussed not understanding how her family has normalized or accepted what her grandfather has done. [facility] staff actively listened to Darren.
--- NOTE | 2023-03-18 15:07 | HO.PHP ---
[facility] staff contacted Ildefonso Baeza through [facility] to place a referral for Darren for Full DBT group. [facility] staff is awaiting a phone call back.
--- NOTE | 2023-03-18 15:10 | HO.PHP ---
[facility] staff received a return phone call back from Ildefonso Felisha from [facility], at 1 PM. Ildefonso mentioned he would need to do the screening with the client opposed to taking a referral, due to them needing to see if she will be an appropriate fit. [facility] staff was receptive and asked if he would like for the staff member to get Darren. Ildefonso noted that he would. [facility] staff member returned with Darren, in which Darren completed the screening over the phone. Ildefonso disclosed to Darren that she qualifies for the program and would be a good candidate. Ildefonso provided insight on the program. Darren mentioned she is still interested in the program but will need to figure out work. Ildefonso was receptive and informed her that he would reach out to her to complete the intake. Darren was receptive and provided her number. After Ildefonso disconnected from the phone, Darren informed [facility] staff that she isn't sure how she will do the program with her job and expressed feeling anxious around losing her job. Darren mentioned she enjoys her job a lot. [facility] staff informed Darren that her work has been working with her thus far and they seem to be supportive. [facility] staff encouraged Darren to talk to her work place to let them know this could be a possibility and what it is she needs to do. Darren was receptive. Darren returned to group 4.
--- NOTE | 2023-03-19 13:25 | HO.PHPPROGNO ---
Subjective Subjective Date of Service: 03/19/23 Reason For Visit: MDD Medical Problems Affecting Mental Status: No Interim History: Continues with depressed mood, anxiety. Recent SIB SI with plan, no intent. Reports is safe today. Poor sleep. Medication Compliance: Yes Side effects from medications: No Attending Groups: Yes Review of Systems Acute medical concerns: No Medical Review of Systems: unchanged Review of Systems Review of Systems Yes all other systems are reviewed and are negative Constitutional: Reports no additional constitutional complaints Mental Status Exam Mental Status Exam Patient Appearance: Appropriate Patient Orientation: Person, Place, Time and Situation Level of Consciousness: Appropriate Patient Behavior: Appropriate, Cooperative and Good Eye Contact Mood Description: Depressed and Anxious Affect Description: Depressed and Anxious Patient Cognition Impaired: No Ability to Follow Directions: Excellent Speech Pattern: Clear Memory Description: Intact Hallucinations: None Delusions: Not Present Thought Process: Intact Thought Content: positive for Intact and positive for Suicidal Ideation (Has plan, no intent) Depressive Symptoms: Increased Anxiety, Difficulty Sleeping, Changes in Appetite, Loss of Int. in Activity, Increased Fatigue, Thoughts of /Suicide, Loss of Energy and Difficulty Concentrating Judgement: Fair Assessment & Plan Assessment & Plan (1) Bipolar 2 disorder, major depressive episode: Status: Acute Code(s): F31.81 - Bipolar II disorder Assessment and Plan: Continues with depressed, anxious mood and affect. Poor sleep. SI with a plan, no intent. Reports that she does feel safe today. Recent self-injurious behavior, cutting. She is participating in groups, finding them helpful. Feels current meds are not adequately helping to address the depression at this time. Discussed possible medication changes, including increasing bedtime dose of quetiapine XR to 150 mg at night, and. The mirtazapine. Also discussed adding low-dose venlafaxine at this time, with plan to titrate up next week. She has taken venlafaxine in the past and found it helpful for depressive episodes. Reviewed both med suggestions, including side effects both common and more severe, risks and benefits. She is in agreement with these changes at this time. Was originally scheduled to discharge tomorrow, however has been extended through next week, due to ongoing depressive symptoms, risk of SI, and medication adjustments. (2) Generalized anxiety disorder: Status: Acute Code(s): F41.1 - Generalized anxiety disorder (3) PTSD (post-traumatic stress disorder): Status: Acute Code(s): F43.10 - Post-traumatic stress disorder, unspecified Assessment and Plan: No PTSD symptoms reported during follow-up visit. However continues with significant depression, anxiety. Plan 1. Continue with current [facility] plan of care. 2. Discontinue mirtazapine. 3. Increase quetiapine XR to 150 mg at bedtime. 4. Add venlafaxine 37.5 mg daily in a.m.. 5. Continue other medications as prescribed by outpatient provider. 6. Follow-up on ThursdayMarch 24. Patient educated on: diagnosis, medication risk/benefits and therapeutic strategies Informed Consent: understands Reason for contiued partial hosp. stay Substantial Risk for: harm to self, inability to function and rapid decompensation Certification I certify that partial hospital treatment is medically necessary due to the symptoms and problems resulting from the patient's mental illness and the failure to treat the patient at the partial hospital level of care would likely result in the patient requiring inpatient psychiatric care which could not be prevented at a less intensive level of care. Total time managing care of this patient today ___30_ minutes. Discharge Plan Discharge Attending provider: Adan Abreu Medications: New quetiapine [Seroquel XR] 150 mg tablet extended release 24 hr 150 mg PO BEDTIME Qty: 14 0RF venlafaxine [Effexor XR] 37.5 mg capsule,extended release 24hr 37.5 mg PO DAILY Qty: 7 0RF No Action lamotrigine 100 mg tablet 100 mg PO BID Stand Alone Forms: Patient Portal Discharge page Patient Education: Bipolar Disorder (DC)
--- NOTE | 2023-03-24 12:37 | HO.PHPPROGNO ---
Subjective Subjective Date of Service: 03/24/23 Reason For Visit: MDD Medical Problems Affecting Mental Status: No Interim History: Continues with depression, anxiety. SI with plan, no intent. Improved sleep overall, however was of since 03:30 today, increased anxiety. Tolerating venlafaxine well. Medication Compliance: Yes Side effects from medications: No Attending Groups: Yes Review of Systems Acute medical concerns: No Medical Review of Systems: unchanged Review of Systems Review of Systems Yes all other systems are reviewed and are negative Constitutional: Reports no additional constitutional complaints Mental Status Exam Mental Status Exam Patient Appearance: Appropriate Patient Orientation: Person, Place, Time and Situation Level of Consciousness: Appropriate Patient Behavior: Appropriate, Cooperative and Good Eye Contact Mood Description: Depressed and Anxious Affect Description: Depressed and Anxious Patient Cognition Impaired: No Ability to Follow Directions: Excellent Speech Pattern: Clear Memory Description: Intact Hallucinations: None Delusions: Not Present Thought Process: Intact Thought Content: positive for Intact and positive for Suicidal Ideation (Has plan, no intent) Depressive Symptoms: Increased Anxiety, Changes in Appetite, Loss of Int. in Activity, Increased Fatigue, Thoughts of /Suicide and Loss of Energy Judgement: Fair Assessment & Plan Assessment & Plan (1) Bipolar 2 disorder, major depressive episode: Status: Acute Code(s): F31.81 - Bipolar II disorder Assessment and Plan: Continues with his depressed, anxious mood and affect. SI with plan, no intent. Feels safe. Discuss this in detail, she is agreeable to calling crisis or seeking assistance while here if at any time she feels unsafe. Tolerating Effexor well. Finding increased quetiapine helpful. Sleep overall improved, however was up at 03:30 today due to anxiety. Reports feeling anxiety regarding returning to work, completing program later this week. We discussed groups, she is finding them helpful. Discussed increasing venlafaxine to 75 mg daily. She was in agreement with this, as she has used this medication in the past with positive effect. (2) Generalized anxiety disorder: Status: Acute Code(s): F41.1 - Generalized anxiety disorder Plan 1. Continue with current [facility] plan of care. 2. Increase Effexor to 75 mg daily. 3. Continue other medications as currently prescribed. 4. Follow-up as per protocol. Patient educated on: diagnosis, medication risk/benefits and therapeutic strategies Informed Consent: understands Reason for contiued partial hosp. stay Substantial Risk for: harm to self, inability to function and rapid decompensation Certification I certify that partial hospital treatment is medically necessary due to the symptoms and problems resulting from the patient's mental illness and the failure to treat the patient at the partial hospital level of care would likely result in the patient requiring inpatient psychiatric care which could not be prevented at a less intensive level of care. Total time managing care of this patient today __25_ minutes. Discharge Plan Discharge Attending provider: Adan Abreu Medications: New quetiapine [Seroquel XR] 150 mg tablet extended release 24 hr 150 mg PO BEDTIME Qty: 14 0RF venlafaxine 75 mg capsule,extended release 24hr 75 mg PO DAILY Qty: 7 0RF No Action lamotrigine 100 mg tablet 100 mg PO BID Stand Alone Forms: Patient Portal Discharge page Patient Education: Bipolar Disorder (DC)
--- NOTE | 2023-03-24 13:21 | PC.NURSE ---
Patient reported to staff, Mejia Porter, that she is having SI with plan and intent fluctuating on overdosing on all of her prescription medications. She reported to staff she can understand why her mother committed suicide. Elizabeth Danielson CNP is aware. Section 12 A obtained. Celia Alexander escorting patient to the ER for evaluation and section 12 A given to Celia. Nurse to Nurse done with ER charge nurse Geovanna and Psychiatric Pod charge nurse Octavia.
--- NOTE | 2023-03-24 15:07 | HO.PHP ---
After group three, PHP staff checked in with Darren due to her presenting as depressed and appearing to be dissociating. Darren reported having difficulties with managing her feelings and doesn't feel this is going to improve. Darren expressed that she is starting to understand more why her mother did what she did. PHP staff assessed for safety. Darren was starting to express having an intent. PHP staff used reflective listening to gather clarification since in group three she stated she has no intent. Darren mentioned that she does have intent and it fluctuates. Darren noted her plan would be to overdose on her prescription medication. PHP staff informed Darren that she would need to be evaluated by the ED. Darren asked the clinician if she promises she will come to program tomorrow, can she let her go home. PHP staff informed her that unfortunately she would still need her to get fully evaluated before returning home. Darren was receptive. Darren ended up being sectioned due to her being unstable. Darren also appeared to be struggling with her ADL's.
== END 2023-03-24 23:59 | disposition home or self-care (01) ==
LOC: HO.PHPA 10:45
PROVIDERS: Visit Provider Psychiatry & Neurology Psychiatry
DX: F31.81 Bipolar II disorder (principal); F41.1 Generalized anxiety disorder; Z79.899 Other long term (current) drug therapy
CPT/HCPCS: 90791; 90853

== ENCOUNTER 2023-03-24 13:21 | Inpatient (IN) | payer OTHER, SELFPAY ==
--- NOTE | 2023-03-24 13:51 | ED.PSYCH ---
HPI - Psych General Stated Complaint: Crisis Time Seen by Provider: 03/24/23 13:27 Source: patient Mode of arrival: ambulatory Limitations: no limitations History of Present Illness HPI Narrative: Patient comes emergency room by private vehicle. Patient came accompanied by someone from the clinic. Patient was seen earlier today and was sectioned 12 at the clinic. Patient states that over the last 2 months her depression has gradually been getting much worse. Patient plans to overdose with her prescribed medications. Denies any homicidal ideation. Related Data Home Medications Medication Instructions Recorded Confirmed lamotrigine 100 mg tablet 100 mg PO BID 03/03/23 03/11/23 Previous Rx's Medication Instructions Recorded quetiapine 150 mg tablet,extended 150 mg PO BEDTIME #14 tabs 03/19/23 release 24 hr (Seroquel XR) venlafaxine 75 mg capsule,extended 75 mg PO DAILY #7 caps 03/24/23 release 24 hr Allergies Allergy/AdvReac Type Severity Reaction Status Date / Time amoxicillin Allergy Severe Vomiting Verified 03/11/23 14:37 Review of Systems Review of Systems: Constitutional : No Weight loss, No Fever, No Chills, No Night Sweats, No Fatigue, No Malaise ENT/Mouth : No Hearing loss, No Ear Pain, No Nasal Congestion, No Sinus Pain, No Hoarseness, No sore throat, No Rhinorrhea, No Swallowing Difficulty Eyes: No Eye Pain, No Swelling, No Redness, No Foreign Body, No Discharge, No Vision Changes Cardiovascular : No Chest Pain, No SOB, No Dyspnea on Exertion, No Orthopnea, No Edema, No Palpitations Respiratory : No Cough, No Sputum, No Wheezing, No Smoke Exposure, No Dyspnea Gastrointestinal : No Nausea, No Vomiting, No Diarrhea, No Constipation, No abdominal Pain, No Hematochezia, No Melena Genitourinary : no irregular bleeding, No Dysuria, No Urinary Frequency, No Hematuria, No Urinary Incontinence, No Urgency, No Flank Pain, No Urinary Flow Changes, No Hesitancy Musculoskeletal : No joint pain, No Myalgias, No Joint Swelling Skin : No Skin Lesions, No rash Neuro : No Weakness, No Numbness, No Paresthesias, No Loss of Consciousness, No Dizziness, No Headache Psych : No Anxiety/Panic, complaining of depression and SI, no HI Heme/Lymph: No Bruising, No Bleeding,No Lymphadenopathy Endocrine : No Polyuria, No Polydipsia, No Temperature Intolerance [facility] Past Medical History Medical History Bipolar 2 disorder, major depressive episode Generalized anxiety disorder No known health problems PTSD (post-traumatic stress disorder) Social History Social History Household Members: Family Alcohol intake: current Alcohol intake frequency: holidays/special occasions only Patient Tobacco Use Status: Never used Tobacco Substance Use Type: Marijuana Physical Exam Const: Other: Appearance: Alert. Oriented X3. No acute distress. Eyes: Pupils equal, round and reactive to light. ENT: Pharynx normal. Neck: Normal inspection. Neck supple. No lymph nodes noted. No crepitus CVS: Normal heart rate and rhythm. Pulses normal. Normal S1 and S2 Respiratory: No respiratory distress. Breath sounds normal. No Wheezing. No rales Abdomen: Soft and nontender. No rigidity. No distention. Skin: Skin warm and dry. Normal skin color. Normal skin turgor. Extremities: No lower extremity edema. No Lacerations. No Rash Neuro: Oriented X 3. No motor deficit. No sensory deficit. Moving all extremities. No slurred speech. CN 2 through 12 grossly intact Psych: calm, cooperative, seems depressed Course Course Course Narrative: -patient's labs pending -care team consult pending -physician observation started to 14:03 Discharge Plan Discharge Clinical Impression: Bipolar 2 disorder, major depressive episode Patient Disposition: Still a Patient Prescriptions: No Action lamotrigine 100 mg tablet 100 mg PO BID quetiapine [Seroquel XR] 150 mg tablet extended release 24 hr 150 mg PO BEDTIME Qty: 14 0RF venlafaxine 75 mg capsule,extended release 24hr 75 mg PO DAILY Qty: 7 0RF
[2023-03-24 13:56] VITALS: BP 143/90; PULSE 82; RESP 18; TEMP 36.5; O2SAT 98; BMI 25.7
[2023-03-24 14:36] LABS: UPreg QC Valid YES; Urine Pregnancy NEGATIVE (NEGATIVE)
[2023-03-24 14:37] LABS: Appearance Urine Clear; Color Urine Yellow; Glucose Urine UA Negative (Negative); Leukocyte Esterase Urine Small (1+) (Negative); Nitrite Urine Negative (Negative); PH 5.5 (5.0-9.0); UMIC TRIGGER UACC YES; Urine Blood Negative (Negative); Urine Ketones Trace mg/dL (Negative); Urine Protein Negative (Neg-Trace)
[2023-03-24 14:39] LABS: Amphetamine Screen Urine Not Detected (Not Detect); Barbiturates, Urine Not Detected (Not Detect); Benzodiazepines Screen Urine Not Detected (Not Detect); Cannabinoid Screen Urine Not Detected (Not Detect); Cocaine Screen Urine Not Detected (Not Detect); Fentanyl, urine Not Detected (Not Detect); Opiate Screen Urine Not Detected (Not Detect); Phencyclidine Screen Urine Not Detected (Not Detect)
[2023-03-24 14:41] LABS: COVID-19 Test Negative (Negative); IDNOW Serial# 08D9AD1C
[2023-03-24 14:45] LABS: Bacteria Urine None Seen (None Seen); Hyaline Casts Urine 0-2 /LPF (0-2); RBC Urine 0-2 /HPF (0-2); Squamous Epithelial Cell Urine 0-2 /HPF (0-2); UACC Culture Trigger YES; WBC Urine 0-5 /HPF (0-5)
[2023-03-24 15:45] LABS: MANUAL DIFF FLAG NO
[2023-03-24 15:46] LABS: Basophils Percent Auto 0.1 % (0-2); Hematocrit 37.8 % (37.0-47.0); Hemoglobin 12.7 g/dl (12.0-16.0); Imm Gran Abs Auto 0.03 X10*3/uL (0.00-0.03); Imm Gran Pct Auto 0.4 % (0.0-0.4); Lymphocytes Absolute Auto 1.5 X10*3/uL (1.2-4.9); Lymphocytes Percent Auto 19.5 % (20-40); Mean Corpuscular HGB Conc 33.6 g/dl (31.0-35.0); Mean Corpuscular Hemoglobin 28.2 pg (27.0-33.0); Monocytes Absolute Auto 0.3 X10*3/uL (0.1-1.2); Monocytes Percent Auto 3.9 % (2-11); Neutrophils Absolute Auto 5.7 x10*3/uL (2.0-8.3); Neutrophils Percent Auto 76.1 % (45-73); Platelet Count 213 X10*3/uL (160-400); White Blood Count 7.4 X10*3/uL (4.8-10.8)
[2023-03-24 16:13] LABS: Alanine Aminotransferase 40 U/L (0-31); Albumin Level 4.8 g/dL (3.5-5.0); Alkaline Phosphatase 55 U/L (39-117); Anion Gap 14 (12-20); Aspartate Amino Transferase 24 U/L (5-31); Bilirubin Direct 0.3 mg/dL (0.0-0.5); Blood Urea Nitrogen 8 mg/dL (9-16); Calcium 9.9 mg/dL (8.4-10.2); Carbon Dioxide 24 mmol/L (22-29); Chloride 105 mmol/L (96-108); Creatinine Clr Calc Pharmacy 93.6; Estimated Glomerular Filt Rate > 60; Ethanol < 10 mg/dL; Glucose Random 87 mg/dL (60-115); Sodium 139 mmol/L (135-145); Total Protein 7.4 g/dL (6.5-8.0)
[2023-03-24] MEDS: Acetaminophen 325 MG TABLET 975 MG PO (22:31)
--- NOTE | 2023-03-25 02:06 | PC.ADMIT ---
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 PT IS COVID NEGATIVE. CONDITIONAL VOLUNTARY. PSYCH GROUP. ASSIGNED TO 15 MINUTE SAFETY CHECKS. VITAL SIGNS STABLE. LABS UNREMARKABLE. NO ACTIVE MEDICAL CONCERNS. PT IS CURRENTLY ON LEAVE FROM HER JOB IN [employer] AT [employer] DUE TO HER MENTAL STATE. PT IS INVOLVED IN [facility]. PT STATED TO HER [facility] PSYCHIATRIC PROVIDER THAT SHE WAS EXPERIENCING SI WITH A PLAN TO OVERDOSE ON HER PRESCRIBED MEDICATIONS. PT REPORTS THAT SHE HAS BEEN EXPERIENCING A LACK OF APPETITE, DISSOCIATING, DIFFICULTY COMPLETING ADLS, AND HAVING TROUBLE REGULATING HER EMOTIONS. PT HAS A DIAGNOSIS OF BIPOLAR II DISORDER AND PTSD. SHE HAS A HX OF SEXUAL AND PHYSICAL TRAUMA. PT REPORTS BEING ABLE TO SEEK STAFF IF FEELING UNSAFE. CURRENTLY HAS FEELINGS OF SI AND STATES SHE ALWAYS HAS VARIOUS PLANS BUT NO INTENT . PT HAS A GOOD RELATIONSHIP WITH HER FATHER HE IS NOW SOBER. PTS MOTHER COMMITTED SUICIDE WHEN PT WAS 17 YEARS OLD, SHE STATES SHE NOW UNDERSTANDS WHY HER MOTHER DID WHAT SHE DID. PT HAS A HX OF SUICIDE ATTEMPTS AND CUTTING. PT RECENTLY SUPERFICIALLY CUT AGAIN AFTER YEARS OF NOT DOING SO. PT HAS PAST PSYCHIATRIC ADMISSIONS WITH THE LAST ONE BEING 11 YEARS AGO. PT HAS STABLE HOUSING. PT HAS A PCP, PSYCHIATRIST, AND THERAPIST. SHE IS ALERT AND ORIENTEDX4. GOOD INSIGHT AND GOOD EYE CONTACT. PT REPORTS MINIMAL SLEEP LATELY. PT DENIES HI/VH/AH. THOUGHT PROCESS IS LINEAR. PT HAS BEEN STRUGGLING TO SOCIALIZE AND HAS BEEN ISOLATING TO SELF. PT HAS A POSITIVE SUPPORT SYSTEM IN PLACE. PT IS MEDICATION COMPLIANT. PT REPORTS SAFE ON THE UNIT AND IS ABLE TO ADVOCATE FOR HER NEEDS. PTS LEGALS, ADMISSION ASSESSMENTS, SAFETY TOOL, AND TREATMENT PLAN HAVE BEEN COMPLETED.
[2023-03-25 06:00] VITALS: BP 159/95; PULSE 76; RESP 18
--- NOTE | 2023-03-25 07:52 | PHA.MEDREC ---
Pharmacy Consult ? Medication Reconciliation Pharmacy has completed the medication reconciliation.Pharmacy has reviewed med rec done by nursing.
[2023-03-25] MEDS: lamoTRIgine 100 MG TABLET PO ×2 (08:28→22:03)
[2023-03-25] MEDS: Venlafaxine HCl ER 75 MG CAP.ER.24H PO (08:28)
[2023-03-25 09:51] LABS: Alanine Aminotransferase 38 U/L (0-31); Albumin Level 4.8 g/dL (3.5-5.0); Alkaline Phosphatase 57 U/L (39-117); Anion Gap 14 (12-20); Aspartate Amino Transferase 25 U/L (5-31); Bilirubin Total 1.2 mg/dL (0.0-1.0); Blood Urea Nitrogen 8 mg/dL (9-16); Calcium 9.7 mg/dL (8.4-10.2); Carbon Dioxide 23 mmol/L (22-29); Chloride 105 mmol/L (96-108); Cholesterol 131 mg/dL; Creatinine Clr Calc Pharmacy 98.3; Estimated Glomerular Filt Rate > 60; Glucose Fasting 89 mg/dL (60-99); HDL Cholesterol 27 mg/dL; LDL Cholesterol Calculated 62 mg/dl; Sodium 138 mmol/L (135-145); Total Protein 7.3 g/dL (6.5-8.0); Triglycerides 212 mg/dL
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
[2023-03-25 18:00] VITALS: BP 133/73; PULSE 83; TEMP 36.8; O2SAT 98
[2023-03-25] MEDS: QUEtiapine Fumarate 50 MG TABLET 150 MG PO (22:03)
[2023-03-25] MEDS: Lithium Carbonate 300 MG TABLET PO (22:03)
[2023-03-25] MEDS: traZODone HCL 50 MG TABLET PO (22:03)
[2023-03-26 07:00] VITALS: BMI 31.0
[2023-03-26 08:01] VITALS: BP 131/78; PULSE 101; RESP 16; TEMP 36.7; O2SAT 97
[2023-03-26] MEDS: Cholecalciferol (Vitamin D3) 10 MCG TABLET PO (08:38)
[2023-03-26] MEDS: Venlafaxine HCl ER 75 MG CAP.ER.24H PO (08:38)
[2023-03-26] MEDS: lamoTRIgine 100 MG TABLET PO ×2 (08:38→22:20)
--- NOTE | 2023-03-26 16:00 | HO.PSYCHPN ---
Subjective Subjective Date of Service: 03/26/23 Reason For Visit: Bipolar II Subjective Notes: Conditional Voluntary Healthcare Proxy: No Guardianship: No Medical Problems Affecting Mental Status: No Interim History: Tolerating [place], utilizing milieu. Asking about discharge. Discussed with pt remaining over the weekend for eval of [place] efficacy, titration, SE and to continue in milieu to identify helpful coping skills. Medication Compliance: Yes Side effects from medications: No Attending Groups: Yes Review of Systems Acute medical concerns: No Medical Review of Systems: unchanged Mental Status Exam Mental Status Exam Patient Appearance: Appropriate Patient Orientation: Person, Place, Time and Situation Level of Consciousness: Alert Patient Behavior: Appropriate, Talkative, Cooperative and Good Eye Contact Mood Description: Depressed and Anxious Affect Description: Flat Patient Cognition Impaired: No Ability to Follow Directions: Good Speech Pattern: Spontaneous Speech Memory Description: Intact Hallucinations: None Delusions: Not Present Perceptual Disturbances: Depersonalization and Derealization Thought Process: Rumination Thought Content: positive for Perseveration Depressive Symptoms: Unhappiness, Increased Fatigue, Thoughts of /Suicide (passive) and Loss of Energy Judgement: Fair Diagnostics Vital Signs (24Hr): Vital Signs - 24 hr 03/25/23 18:00 03/26/23 08:01 Temperature 98.2 F 98.0 F Pulse Rate 83 101 H Respiratory Rate 16 Blood Pressure 133/73 131/78 Pulse Oximetry 98 97 Oxygen Delivery Method Room Air Room Air BMI result Body Mass Index 31.0 Labs 03/24/23 15:29 03/25/23 08:51 Labs: Laboratory Results - last 48 hr 03/24/23 03/25/23 15:29 08:51 Sodium 139 138 Potassium 4.0 4.0 Chloride 105 105 Carbon Dioxide 24 23 Anion Gap 14 14 BUN 8 L 8 L Creatinine 0.84 0.80 Estim Creat Clear Calc 93.6 98.3 Estimated GFR > 60 > 60 Random Glucose 87 Fasting Glucose 89 Calcium 9.9 9.7 Total Bilirubin 1.0 1.2 H Direct Bilirubin 0.3 AST 24 25 ALT 40 H 38 H Alkaline Phosphatase 55 57 Total Protein 7.4 7.3 Albumin 4.8 4.8 Triglycerides 212 Cholesterol 131 LDL Cholesterol, Calc 62 HDL Cholesterol 27 Ethyl Alcohol < 10 Medications Medications Current Medications Acetaminophen (Acetaminophen 325 Mg Tablet) 650 mg PO Q6H PRN PRN Reason: Headache/Pain Mild Scale (1-3) Al Hydroxide/Mg Hydroxide (Magnesium Hydrox/Alum Hydrox 30 Ml Oral.Susp) 30 ml PO Q6H PRN PRN Reason: Heartburn/Nausea Hydroxyzine HCl (Hydroxyzine Hcl 25 Mg Tablet) 25 mg PO Q6H PRN PRN Reason: Anxiety Lamotrigine (Lamotrigine 100 Mg Tablet) 100 mg PO BID [facility] Last Admin: 03/26/23 08:38 Dose: 100 mg [place] Carbonate ([place] Carbonate 300 Mg Tablet) 300 mg PO BEDTIME [facility] Last Admin: 03/25/23 22:03 Dose: 300 mg Magnesium Hydroxide (Milk Of Magnesia 30 Ml Oral.Susp) 30 ml PO DAILY PRN PRN Reason: Constipation Quetiapine Fumarate (Quetiapine Fumarate 50 Mg Tablet) 150 mg PO BEDTIME [facility] Last Admin: 03/25/23 22:03 Dose: 150 mg Trazodone HCl (Trazodone Hcl 50 Mg Tablet) 50 mg PO BEDTIME MRX1 PRN PRN Reason: Insomnia Last Admin: 03/25/23 22:03 Dose: 50 mg Venlafaxine HCl (Venlafaxine Hcl Er 75 Mg Cap.Er.24h) 75 mg PO DAILY [facility] Last Admin: 03/26/23 08:38 Dose: 75 mg Vitamin D (Cholecalciferol (Vitamin D3) 10 Mcg Tablet) 10 mcg PO DAILY [facility] Last Admin: 03/26/23 08:38 Dose: 10 mcg Allergies Allergies Allergy/AdvReac Type Severity Reaction Status Date / Time amoxicillin Allergy Severe Vomiting Verified 03/24/23 17:04 Assessment & Plan Assessment & Plan (1) Bipolar 2 disorder, major depressive episode: Status: Acute Code(s): F31.81 - Bipolar II disorder (2) Generalized anxiety disorder: Status: Acute Code(s): F41.1 - Generalized anxiety disorder Plan 27 yo female, with bipolar II, currently with overwhelming self-harming thoughts and passive SI with OD plan. Plan: Consolidate Seroquel to 150 mg HS Vitamin D3 10 mcg daily [place] 300 mg HS to augment lamictal and target SI, self-harming urges. 03/26/23: Continue current regime and plan of care. Probable discharge early next week-return to [facility] if possible. Pt concurs. Patient educated on: medication risk/benefits and therapeutic strategies Informed Consent: understands Reason for continued inpatient stay Substantial Risk for: harm to self Time Spent With Patient Time: Total time managing care of this patient today ____ minutes.
[2023-03-26 18:00] VITALS: BP 128/79; PULSE 68; RESP 16; TEMP 36.6; O2SAT 99
[2023-03-26] MEDS: Lithium Carbonate 300 MG TABLET PO (22:19)
[2023-03-26] MEDS: QUEtiapine Fumarate 50 MG TABLET 150 MG PO (22:19)
[2023-03-27 08:22] VITALS: BP 143/93; PULSE 93; RESP 16; TEMP 36.9; O2SAT 99
[2023-03-27] MEDS: Cholecalciferol (Vitamin D3) 10 MCG TABLET PO (08:23)
[2023-03-27] MEDS: Venlafaxine HCl ER 75 MG CAP.ER.24H PO (08:23)
[2023-03-27] MEDS: lamoTRIgine 100 MG TABLET PO ×2 (08:23→21:25)
--- NOTE | 2023-03-27 10:00 | P.PNPSI_ITS ---
Subjective Subjective Date of Service: 03/27/23 Reason For Visit: Bipolar II Interim History: met with patient; discussed with team; reviewed progress notes Patient reports that she is feeling better; recently started on Lamictal which she says has been helpful and that she sleeping better. Denies any medication side effects. No urges to self-harm. Mental Status Exam Mental Status Exam Narrative: Pt is alert and oriented; behavior is cooperative, friendly and calm; patient is not in distress; dressed in casual attire with adequate hygiene; mood is described as better and affect congruent, brighter; eye contact appropriate; Speech is normal rate, volume and prosody and not pressured; no psychomotor agitation/retardation present; thought process is organized and goal directed; Thought content is on tx; otherwise pertinent to relevant topics and without any delusional content, paranoid ideations or grandiosity; denies any SI/HI; denies urges to self-harm. There is no evidence of perceptual disturbance. Patients insight and judgment appear intact. Diagnostics Vital Signs (24Hr): Vital Signs - 24 hr 03/26/23 18:00 03/27/23 08:22 Temperature 97.8 F 98.5 F Pulse Rate 68 93 Respiratory Rate 16 16 Blood Pressure 128/79 143/93 H Pulse Oximetry 99 99 Oxygen Delivery Method Room Air Room Air BMI result Body Mass Index 31.0 Labs 03/24/23 15:29 03/25/23 08:51 Medications Medications Current Medications Acetaminophen (Acetaminophen 325 Mg Tablet) 650 mg PO Q6H PRN PRN Reason: Headache/Pain Mild Scale (1-3) Al Hydroxide/Mg Hydroxide (Magnesium Hydrox/Alum Hydrox 30 Ml Oral.Susp) 30 ml PO Q6H PRN PRN Reason: Heartburn/Nausea Hydroxyzine HCl (Hydroxyzine Hcl 25 Mg Tablet) 25 mg PO Q6H PRN PRN Reason: Anxiety Lamotrigine (Lamotrigine 100 Mg Tablet) 100 mg PO BID [facility] Last Admin: 03/27/23 08:23 Dose: 100 mg [place] Carbonate ([place] Carbonate 300 Mg Tablet) 300 mg PO BEDTIME [facility] Last Admin: 03/26/23 22:19 Dose: 300 mg Magnesium Hydroxide (Milk Of Magnesia 30 Ml Oral.Susp) 30 ml PO DAILY PRN PRN Reason: Constipation Quetiapine Fumarate (Quetiapine Fumarate 50 Mg Tablet) 150 mg PO BEDTIME [facility] Last Admin: 03/26/23 22:19 Dose: 150 mg Trazodone HCl (Trazodone Hcl 50 Mg Tablet) 50 mg PO BEDTIME MRX1 PRN PRN Reason: Insomnia Last Admin: 03/25/23 22:03 Dose: 50 mg Venlafaxine HCl (Venlafaxine Hcl Er 75 Mg Cap.Er.24h) 75 mg PO DAILY [facility] Last Admin: 03/27/23 08:23 Dose: 75 mg Vitamin D (Cholecalciferol (Vitamin D3) 10 Mcg Tablet) 10 mcg PO DAILY [facility] Last Admin: 03/27/23 08:23 Dose: 10 mcg Allergies Allergies Allergy/AdvReac Type Severity Reaction Status Date / Time amoxicillin Allergy Severe Vomiting Verified 03/24/23 17:04 Assessment & Plan Assessment & Plan (1) Bipolar 2 disorder, major depressive episode: Status: Acute Code(s): F31.81 - Bipolar II disorder (2) Generalized anxiety disorder: Status: Acute Code(s): F41.1 - Generalized anxiety disorder Plan 27 yo female, with bipolar II, currently with overwhelming self-harming thoughts and passive SI with OD plan. Plan: Consolidate Seroquel to 150 mg HS Vitamin D3 10 mcg daily [place] 300 mg HS to augment lamictal and target SI, self-harming urges. 03/26/23: Continue current regime and plan of care. Probable discharge early next week-return to [facility] if possible. Pt concurs. 03/27/23: Patient seems to be improving; feeling mood is better; no SI or urges to self- harm. Sleeping better ordered lithium level and associated labs for 03/30 Patient educated on: diagnosis and medication risk/benefits Informed Consent: understands Reason for continued inpatient stay Substantial Risk for: med/psych decompensation Time Spent With Patient Time: Total time managing care of this patient today ____ minutes.
[2023-03-27 19:56] VITALS: BP 161/95; PULSE 97; TEMP 36.4
[2023-03-27] MEDS: Lithium Carbonate 300 MG TABLET PO (21:25)
[2023-03-27] MEDS: QUEtiapine Fumarate 50 MG TABLET 150 MG PO (21:25)
[2023-03-28 08:00] VITALS: BP 131/79; PULSE 75; RESP 18; TEMP 36.3; O2SAT 100
[2023-03-28] MEDS: Venlafaxine HCl ER 75 MG CAP.ER.24H PO (08:32)
[2023-03-28] MEDS: lamoTRIgine 100 MG TABLET PO ×2 (08:33→21:29)
[2023-03-28] MEDS: Cholecalciferol (Vitamin D3) 10 MCG TABLET PO (08:33)
[2023-03-28 15:49] VITALS: BP 139/88; PULSE 72
--- NOTE | 2023-03-28 16:30 | P.PNPSI_ITS ---
Subjective Subjective Date of Service: 03/28/23 Reason For Visit: Bipolar II Subjective Notes: Conditional Voluntary Interim History: met with patient; reviewed chart Patient reports that she is still feeling depressed but a little better;pt reports she thinks meds including lamictal have been helpful; she reports sleeping better. Denies any medication side effects. No urges to self-harm. Medication Compliance: Yes Side effects from medications: No Attending Groups: Yes Review of Systems Acute medical concerns: No Medical Review of Systems: unchanged Review of Systems Review of Systems Constitutional : No Weight loss, No Fever, No Chills, No Night Sweats, No Fatigue, No Malaise ENT/Mouth : No Hearing loss, No Ear Pain, No Nasal Congestion, No Sinus Pain, No Hoarseness, No sore throat, No Rhinorrhea, No Swallowing Difficulty Eyes: No Eye Pain, No Swelling, No Redness, No Foreign Body, No Discharge, No Vision Changes Cardiovascular : No Chest Pain, No SOB, No Dyspnea on Exertion, No Orthopnea, No Edema, No Palpitations Respiratory : No Cough, No Sputum, No Wheezing, No Smoke Exposure, No Dyspnea Gastrointestinal : No Nausea, No Vomiting, No Diarrhea, No Constipation, No abdominal Pain, No Hematochezia, No Melena Genitourinary : no irregular bleeding, No Dysuria, No Urinary Frequency, No Hematuria, No Urinary Incontinence, No Urgency, No Flank Pain, No Urinary Flow Changes, No Hesitancy Musculoskeletal : No joint pain, No Myalgias, No Joint Swelling Skin : No Skin Lesions, No rash Neuro : No Weakness, No Numbness, No Paresthesias, No Loss of Consciousness, No Dizziness, No Headache Psych : No Anxiety/Panic, complaining of depression and SI, no HI Heme/Lymph: No Bruising, No Bleeding,No Lymphadenopathy Endocrine : No Polyuria, No Polydipsia, No Temperature Intolerance Psychiatric: Reports anxiety, Reports depression, Reports difficulty concentrating, Reports hopelessness, Reports anhedonia, Reports suicidal ideation and Reports other (SIBS) Mental Status Exam Mental Status Exam Narrative: Pt is alert and oriented; behavior is cooperative, friendly and calm; patient is not in distress; dressed in casual attire with adequate hygiene; mood is described as depressed and affect congruent, brighter; eye contact appropriate; Speech is normal rate, volume and prosody and not pressured; no psychomotor agitation/retardation present; thought process is organized and goal directed; Thought content is on tx; otherwise pertinent to relevant topics and without any delusional content, paranoid ideations or grandiosity; denies any SI/HI; denies urges to self-harm. There is no evidence of perceptual disturbance. Patients insight and judgment appear intact. Patient Appearance: Appropriate Patient Orientation: Person, Place, Time and Situation Level of Consciousness: Alert Patient Behavior: Appropriate, Talkative, Cooperative and Good Eye Contact Mood Description: Depressed and Anxious Affect Description: Flat Patient Cognition Impaired: No Ability to Follow Directions: Good Speech Pattern: Spontaneous Speech Memory Description: Intact Diagnostics Vital Signs (24Hr): Vital Signs - 24 hr 03/27/23 19:56 03/28/23 08:00 03/28/23 15:49 Temperature 97.6 F 97.3 F Pulse Rate 97 75 72 Respiratory Rate 18 Blood Pressure 161/95 H 131/79 139/88 Pulse Oximetry 100 Oxygen Delivery Method Room Air BMI result Body Mass Index 31.0 Labs 03/24/23 15:29 03/25/23 08:51 Medications Medications Current Medications Acetaminophen (Acetaminophen 325 Mg Tablet) 650 mg PO Q6H PRN PRN Reason: Headache/Pain Mild Scale (1-3) Al Hydroxide/Mg Hydroxide (Magnesium Hydrox/Alum Hydrox 30 Ml Oral.Susp) 30 ml PO Q6H PRN PRN Reason: Heartburn/Nausea Hydroxyzine HCl (Hydroxyzine Hcl 25 Mg Tablet) 25 mg PO Q6H PRN PRN Reason: Anxiety Lamotrigine (Lamotrigine 100 Mg Tablet) 100 mg PO BID [facility] Last Admin: 03/28/23 08:33 Dose: 100 mg [place] Carbonate ([place] Carbonate 300 Mg Tablet) 300 mg PO BEDTIME [facility] Last Admin: 03/27/23 21:25 Dose: 300 mg Magnesium Hydroxide (Milk Of Magnesia 30 Ml Oral.Susp) 30 ml PO DAILY PRN PRN Reason: Constipation Quetiapine Fumarate (Quetiapine Fumarate 50 Mg Tablet) 150 mg PO BEDTIME [facility] Last Admin: 03/27/23 21:25 Dose: 150 mg Trazodone HCl (Trazodone Hcl 50 Mg Tablet) 50 mg PO BEDTIME MRX1 PRN PRN Reason: Insomnia Last Admin: 03/25/23 22:03 Dose: 50 mg Venlafaxine HCl (Venlafaxine Hcl Er 75 Mg Cap.Er.24h) 75 mg PO DAILY [facility] Last Admin: 03/28/23 08:32 Dose: 75 mg Vitamin D (Cholecalciferol (Vitamin D3) 10 Mcg Tablet) 10 mcg PO DAILY [facility] Last Admin: 03/28/23 08:33 Dose: 10 mcg Allergies Allergies Allergy/AdvReac Type Severity Reaction Status Date / Time amoxicillin Allergy Severe Vomiting Verified 03/24/23 17:04 Assessment & Plan Assessment & Plan (1) Bipolar 2 disorder, major depressive episode: Status: Acute Code(s): F31.81 - Bipolar II disorder (2) Generalized anxiety disorder: Status: Acute Code(s): F41.1 - Generalized anxiety disorder Plan 27 yo female, with bipolar II, currently with overwhelming self-harming thoughts and passive SI with OD plan. Plan: Consolidate Seroquel to 150 mg HS Vitamin D3 10 mcg daily [place] 300 mg HS to augment lamictal and target SI, self-harming urges. 03/26/23: Continue current regime and plan of care. Probable discharge early next week-return to [facility] if possible. Pt concurs. 03/27/23: Patient seems to be improving; feeling mood is better; no SI or urges to self- harm. Sleeping better ordered lithium level and associated labs for 03/3003/28/23 continue treatment plan Patient educated on: medication risk/benefits and therapeutic strategies Informed Consent: understands and further education needed Reason for continued inpatient stay Substantial Risk for: harm to self, inability to function and rapid decompensa tion Time Spent With Patient Time: Total time managing care of this patient today ____ minutes.
[2023-03-28] MEDS: Lithium Carbonate 300 MG TABLET PO (21:29)
[2023-03-28] MEDS: QUEtiapine Fumarate 50 MG TABLET 150 MG PO (21:29)
[2023-03-29 08:10] VITALS: BP 129/86; PULSE 92; RESP 18; TEMP 36.4; O2SAT 99
[2023-03-29] MEDS: Cholecalciferol (Vitamin D3) 10 MCG TABLET PO (08:40)
[2023-03-29] MEDS: lamoTRIgine 100 MG TABLET PO ×2 (08:40→21:27)
[2023-03-29] MEDS: Venlafaxine HCl ER 75 MG CAP.ER.24H PO (08:40)
--- NOTE | 2023-03-29 11:33 | HO.PSYCHPN ---
Subjective Subjective Date of Service: 03/29/23 Reason For Visit: Bipolar II Subjective Notes: Conditional Voluntary Interim History: Patient reports that she is still feeling depressed but a little better;pt reports she thinks meds including lamictal have been helpful; she reports sleeping better. Denies any medication side effects. No urges to self-harm. Medication Compliance: Yes Side effects from medications: No Attending Groups: Intermittent Review of Systems Acute medical concerns: No Medical Review of Systems: unchanged Review of Systems Review of Systems Constitutional : No Weight loss, No Fever, No Chills, No Night Sweats, No Fatigue, No Malaise ENT/Mouth : No Hearing loss, No Ear Pain, No Nasal Congestion, No Sinus Pain, No Hoarseness, No sore throat, No Rhinorrhea, No Swallowing Difficulty Eyes: No Eye Pain, No Swelling, No Redness, No Foreign Body, No Discharge, No Vision Changes Cardiovascular : No Chest Pain, No SOB, No Dyspnea on Exertion, No Orthopnea, No Edema, No Palpitations Respiratory : No Cough, No Sputum, No Wheezing, No Smoke Exposure, No Dyspnea Gastrointestinal : No Nausea, No Vomiting, No Diarrhea, No Constipation, No abdominal Pain, No Hematochezia, No Melena Genitourinary : no irregular bleeding, No Dysuria, No Urinary Frequency, No Hematuria, No Urinary Incontinence, No Urgency, No Flank Pain, No Urinary Flow Changes, No Hesitancy Musculoskeletal : No joint pain, No Myalgias, No Joint Swelling Skin : No Skin Lesions, No rash Neuro : No Weakness, No Numbness, No Paresthesias, No Loss of Consciousness, No Dizziness, No Headache Psych : No Anxiety/Panic, complaining of depression and SI, no HI Heme/Lymph: No Bruising, No Bleeding,No Lymphadenopathy Endocrine : No Polyuria, No Polydipsia, No Temperature Intolerance Psychiatric: Reports anxiety, Reports depression, Reports difficulty concentrating, Reports hopelessness, Reports anhedonia, Reports suicidal ideation and Reports other (SIBS) Mental Status Exam Mental Status Exam Narrative: Pt is alert and oriented; behavior is cooperative, friendly and calm; patient is not in distress; dressed in casual attire with adequate hygiene; mood is described as depressed and affect congruent, brighter; eye contact appropriate; Speech is normal rate, volume and prosody and not pressured; no psychomotor agitation/retardation present; thought process is organized and goal directed; Thought content is on tx; otherwise pertinent to relevant topics and without any delusional content, paranoid ideations or grandiosity; denies any SI/HI; denies urges to self-harm. There is no evidence of perceptual disturbance. Patients insight and judgment appear intact. Patient Appearance: Appropriate Patient Orientation: Person, Place, Time and Situation Level of Consciousness: Alert Patient Behavior: Appropriate, Talkative, Cooperative and Good Eye Contact Mood Description: Depressed and Anxious Affect Description: Flat Patient Cognition Impaired: No Ability to Follow Directions: Good Speech Pattern: Spontaneous Speech Memory Description: Intact Diagnostics Vital Signs (24Hr): Vital Signs - 24 hr 03/28/23 15:49 03/29/23 08:10 Temperature 97.5 F Pulse Rate 72 92 Respiratory Rate 18 Blood Pressure 139/88 129/86 Pulse Oximetry 99 Oxygen Delivery Method Room Air BMI result Body Mass Index 31.0 Labs 03/24/23 15:29 03/25/23 08:51 Labs: Laboratory Results - last 48 hr 03/29/23 08:43 [place] 0.30 L Medications Medications Current Medications Acetaminophen (Acetaminophen 325 Mg Tablet) 650 mg PO Q6H PRN PRN Reason: Headache/Pain Mild Scale (1-3) Al Hydroxide/Mg Hydroxide (Magnesium Hydrox/Alum Hydrox 30 Ml Oral.Susp) 30 ml PO Q6H PRN PRN Reason: Heartburn/Nausea Hydroxyzine HCl (Hydroxyzine Hcl 25 Mg Tablet) 25 mg PO Q6H PRN PRN Reason: Anxiety Lamotrigine (Lamotrigine 100 Mg Tablet) 100 mg PO BID [facility] Last Admin: 03/29/23 08:40 Dose: 100 mg [place] Carbonate ([place] Carbonate 300 Mg Tablet) 300 mg PO BEDTIME [facility] Last Admin: 03/28/23 21:29 Dose: 300 mg Magnesium Hydroxide (Milk Of Magnesia 30 Ml Oral.Susp) 30 ml PO DAILY PRN PRN Reason: Constipation Quetiapine Fumarate (Quetiapine Fumarate 50 Mg Tablet) 150 mg PO BEDTIME [facility] Last Admin: 03/28/23 21:29 Dose: 150 mg Trazodone HCl (Trazodone Hcl 50 Mg Tablet) 50 mg PO BEDTIME MRX1 PRN PRN Reason: Insomnia Last Admin: 03/25/23 22:03 Dose: 50 mg Venlafaxine HCl (Venlafaxine Hcl Er 75 Mg Cap.Er.24h) 75 mg PO DAILY [facility] Last Admin: 03/29/23 08:40 Dose: 75 mg Vitamin D (Cholecalciferol (Vitamin D3) 10 Mcg Tablet) 10 mcg PO DAILY [facility] Last Admin: 03/29/23 08:40 Dose: 10 mcg Allergies Allergies Allergy/AdvReac Type Severity Reaction Status Date / Time amoxicillin Allergy Severe Vomiting Verified 03/24/23 17:04 Assessment & Plan Assessment & Plan (1) Bipolar 2 disorder, major depressive episode: Status: Acute Code(s): F31.81 - Bipolar II disorder (2) Generalized anxiety disorder: Status: Acute Code(s): F41.1 - Generalized anxiety disorder Plan 27 yo female, with bipolar II, currently with overwhelming self-harming thoughts and passive SI with OD plan. Plan: Consolidate Seroquel to 150 mg HS Vitamin D3 10 mcg daily [place] 300 mg HS to augment lamictal and target SI, self-harming urges. 03/26/23: Continue current regime and plan of care. Probable discharge early next week-return to [facility] if possible. Pt concurs. 03/27/23: Patient seems to be improving; feeling mood is better; no SI or urges to self-harm. Sleeping better ordered lithium level and associated labs for 03/3003/28/23 continue treatment plan 03/29/23 continue treatment plan Reason for continued inpatient stay Substantial Risk for: harm to self, inability to function and rapid decompensation Time Spent With Patient Time: Total time managing care of this patient today ____ minutes.
[2023-03-29 18:00] VITALS: BP 155/83; PULSE 84; RESP 18; TEMP 36.8; O2SAT 97
[2023-03-29] MEDS: Lithium Carbonate 300 MG TABLET PO (21:27)
[2023-03-29] MEDS: QUEtiapine Fumarate 50 MG TABLET 150 MG PO (21:27)
[2023-03-30 08:00] VITALS: BP 134/87; PULSE 88; RESP 18; TEMP 36.7; O2SAT 99
[2023-03-30 08:20] LABS: Lithium 0.33 mmol/L (0.60-1.20)
[2023-03-30 08:31] LABS: Blood Urea Nitrogen 5 mg/dL (9-16); Estimated Glomerular Filt Rate > 60
[2023-03-30] MEDS: lamoTRIgine 100 MG TABLET PO (08:34)
[2023-03-30] MEDS: Venlafaxine HCl ER 75 MG CAP.ER.24H PO (08:34)
[2023-03-30] MEDS: Cholecalciferol (Vitamin D3) 10 MCG TABLET PO (08:35)
[2023-03-30 08:47] LABS: TSH reflex Free T4 2.02 uIU/mL (0.32-4.0)
--- NOTE | 2023-03-30 11:23 | PM.PSYDC ---
DS: Providers Provider Date of Service: 03/30/23 Date of admission: 03/24/23 23:45 Date of discharge: 03/30/23 Primary care physician: Unknown Physician Admitting clinician: Jeanie Hernandez Attending physician on discharge: Bebo Bills DS: Diagnosis Discharge Diagnosis (1) Bipolar 2 disorder, major depressive episode: Status: Acute (2) Generalized anxiety disorder: Status: Acute DS: Medications Discharge Medications Home Medications: Previous Rx's Medication Instructions Recorded cholecalciferol (vitamin D3) 10 10 mcg PO DAILY 30 days #30 tabs 03/30/23 mcg (400 unit) tablet (Vitamin D3) lamotrigine 100 mg tablet 100 mg PO BID 30 days #60 tabs 03/30/23 lithium carbonate 300 mg tablet 300 mg PO BEDTIME 30 days #30 tabs 03/30/23 quetiapine 50 mg tablet 150 mg PO BEDTIME 30 days #90 tabs 03/30/23 venlafaxine 75 mg capsule,extended 75 mg PO DAILY 30 days #30 caps 03/30/23 release 24 hr Mental Status Exam Mental Status Exam Narrative: Pt is alert and oriented; behavior is cooperative, friendly and calm; patient is not in distress; dressed in casual attire with adequate hygiene; mood is described as good and affect congruent, brighter; eye contact appropriate; Speech is normal rate, volume and prosody and not pressured; no psychomotor agitation/retardation present; thought process is organized and goal directed; Thought content is on tx; otherwise pertinent to relevant topics and without any delusional content, paranoid ideations or grandiosity; denies any SI/HI; denies urges to self-harm. There is no evidence of perceptual disturbance. Patients insight and judgment are intact. Data Data Completed and Pending Completed studies during hospitalization [Text1]: 03/24/23 03/24/23 03/24/23 14:09 14:09 14:09 WBC RBC Hgb Hct MCV MCH MCHC RDW Plt Count MPV Immature Gran % (Auto) Neut % (Auto) Lymph % (Auto) [place] % (Auto) Eos % (Auto) Baso % (Auto) Lymph # (Auto) [place] # (Auto) Eos # (Auto) Baso # (Auto) Abs Immat Gran (auto) Absolute Neuts (auto) Absolute Nucleated RBC Nucleated RBC % (auto) Sodium Potassium Chloride Carbon Dioxide Anion Gap BUN Creatinine Estim Creat Clear Calc Estimated GFR Random Glucose Fasting Glucose Calcium Total Bilirubin Direct Bilirubin AST ALT Alkaline Phosphatase Total Protein Albumin Triglycerides Cholesterol LDL Cholesterol, Calc HDL Cholesterol TSH Urine Color Yellow Urine Appearance Clear Urine pH 5.5 Ur Specific [place] 1.010 Urine Protein Negative Urine Glucose (UA) Negative Urine Ketones Trace Urine Blood Negative Urine Nitrite Negative Ur Leukocyte Esterase Small (1+) H Urine RBC 0-2 Urine WBC 0-5 Ur Squamous Epith Cells 0-2 Urine Bacteria None Seen Hyaline Casts 0-2 Urine Test NEGATIVE Urine Opiates Screen Urine Fentanyl Screen Ur Barbiturates Screen Ur Phencyclidine Scrn Ur Amphetamines Screen U Benzodiazepines Scrn [place] Urine Cocaine Screen U Marijuana (THC) Screen Ethyl Alcohol COVID-19 (DARSHANA) Negative COVID-19 Clin Com See Note 03/24/23 03/24/23 03/24/23 14:09 15:29 15:29 WBC 7.4 RBC 4.50 Hgb 12.7 Hct 37.8 MCV 84.0 MCH 28.2 MCHC 33.6 RDW 14.0 Plt Count 213 MPV 11.0 Immature Gran % (Auto) 0.4 Neut % (Auto) 76.1 H Lymph % (Auto) 19.5 L [place] % (Auto) 3.9 Eos % (Auto) 0.0 Baso % (Auto) 0.1 Lymph # (Auto) 1.5 [place] # (Auto) 0.3 Eos # (Auto) 0.0 Baso # (Auto) 0.0 Abs Immat Gran (auto) 0.03 Absolute Neuts (auto) 5.7 Absolute Nucleated RBC 0.000 Nucleated RBC % (auto) 0.0 Sodium 139 Potassium 4.0 Chloride 105 Carbon Dioxide 24 Anion Gap 14 BUN 8 L Creatinine 0.84 Estim Creat Clear Calc 93.6 Estimated GFR > 60 Random Glucose 87 Fasting Glucose Calcium 9.9 Total Bilirubin 1.0 Direct Bilirubin 0.3 AST 24 ALT 40 H Alkaline Phosphatase 55 Total Protein 7.4 Albumin 4.8 Triglycerides Cholesterol LDL Cholesterol, Calc HDL Cholesterol TSH Urine Color Urine Appearance Urine pH Ur Specific [place] Urine Protein Urine Glucose (UA) Urine Ketones Urine Blood Urine Nitrite Ur Leukocyte Esterase Urine RBC Urine WBC Ur Squamous Epith Cells Urine Bacteria Hyaline Casts Urine Test Urine Opiates Screen Not Detected Urine Fentanyl Screen Not Detected Ur Barbiturates Screen Not Detected Ur Phencyclidine Scrn Not Detected Ur Amphetamines Screen Not Detected U Benzodiazepines Scrn Not Detected [place] Urine Cocaine Screen Not Detected U Marijuana (THC) Screen Not Detected Ethyl Alcohol < 10 COVID-19 (DARSHANA) COVID-19 Spot[place] 03/25/23 03/29/23 03/30/23 08:51 08:43 07:55 WBC RBC Hgb Hct MCV MCH MCHC RDW Plt Count MPV Immature Gran % (Auto) Neut % (Auto) Lymph % (Auto) [place] % (Auto) Eos % (Auto) Baso % (Auto) Lymph # (Auto) [place] # (Auto) Eos # (Auto) Baso # (Auto) Abs Immat Gran (auto) Absolute Neuts (auto) Absolute Nucleated RBC Nucleated RBC % (auto) Sodium 138 Potassium 4.0 Chloride 105 Carbon Dioxide 23 Anion Gap 14 BUN 8 L 5 L Creatinine 0.80 0.85 Estim Creat Clear Calc 98.3 101.0 Estimated GFR > 60 > 60 Random Glucose Fasting Glucose 89 Calcium 9.7 Total Bilirubin 1.2 H Direct Bilirubin AST 25 ALT 38 H Alkaline Phosphatase 57 Total Protein 7.3 Albumin 4.8 Triglycerides 212 Cholesterol 131 LDL Cholesterol, Calc 62 HDL Cholesterol 27 TSH 2.02 Urine Color Urine Appearance Urine pH Ur Specific [place] Urine Protein Urine Glucose (UA) Urine Ketones Urine Blood Urine Nitrite Ur Leukocyte Esterase Urine RBC Urine WBC Ur Squamous Epith Cells Urine Bacteria Hyaline Casts Urine Test Urine Opiates Screen Urine Fentanyl Screen Ur Barbiturates Screen Ur Phencyclidine Scrn Ur Amphetamines Screen U Benzodiazepines Scrn [place] 0.30 L Urine Cocaine Screen U Marijuana (THC) Screen Ethyl Alcohol COVID-19 (DARSHANA) COVID-19 Spotistic 03/30/23 07:55 WBC RBC Hgb Hct MCV MCH MCHC RDW Plt Count MPV Immature Gran % (Auto) Neut % (Auto) Lymph % (Auto) [place] % (Auto) Eos % (Auto) Baso % (Auto) Lymph # (Auto) [place] # (Auto) Eos # (Auto) Baso # (Auto) Abs Immat Gran (auto) Absolute Neuts (auto) Absolute Nucleated RBC Nucleated RBC % (auto) Sodium Potassium Chloride Carbon Dioxide Anion Gap BUN Creatinine Estim Creat Clear Calc Estimated GFR Random Glucose Fasting Glucose Calcium Total Bilirubin Direct Bilirubin AST ALT Alkaline Phosphatase Total Protein Albumin Triglycerides Cholesterol LDL Cholesterol, Calc HDL Cholesterol TSH Urine Color Urine Appearance Urine pH Ur Specific [place] Urine Protein Urine Glucose (UA) Urine Ketones Urine Blood Urine Nitrite Ur Leukocyte Esterase Urine RBC Urine WBC Ur Squamous Epith Cells Urine Bacteria Hyaline Casts Urine Test Urine Opiates Screen Urine Fentanyl Screen Ur Barbiturates Screen Ur Phencyclidine Scrn Ur Amphetamines Screen U Benzodiazepines Scrn [place] 0.33 L Urine Cocaine Screen U Marijuana (THC) Screen Ethyl Alcohol COVID-19 ([facility]SHANA) COVID-19 Clin Com 03/24/23 Unknown Urine clean catch - Clean Catch Midstream Urine Culture - Final No growth. DS: Summary Hospital Course Hospital Course: 27 yo female, with bipolar II, currently with overwhelming self-harming thoughts and passive SI with OD plan. continued on Venlafaxine and Lamictal; Seroquel Consolidated to 150 mg HS; patient started on lithium to augment. Patient's mood started to get better had SI and self harming urges fully resolved. Patient was sleeping better; she was in good behavioral and impulse control throughout her admission, attended groups and was engaged in treatment. Pt felt she was back to her regular self. Patient stabilized, remained in good mood, future oriented, no SI and returning to live home w/ mother. Pt was not in imminent risk for harm to self or others and request for discharge honored. Time spent discussing smoking cessation with patient: 3 to 10 minutes Status at Discharge Functional status at discharge: independent ambulation Overall status at discharge: patient is back to baseline Time Spent with Patient Time attestation: Total time managing care of this patient today ____ minutes. Time spent: Less than 30 minutes Discharge Plan Discharge Anticipated Discharge Date/Time: 03/30/23 11:45 Patient Disposition: Home, Self-Care Discharge Diagnosis: Bipolar II disorder, recurrent, most recently depressed, in partial remission [place] [facility] [place] Intake [Other] - 04/08/23 8:00 am (In-person) [facility] Medication Provider Berta Tejada [Other] - 04/29/23 9:00 am (In-person) [facility] Sten[facility] Antionette [Other] - 1 Week (Kaden's extension is: [id number] Services provided: -Community resources -Case management -Health providers -Programs in the community) Beth Mcginnis [Other] - 1 Week (You have indicated that you will make your own appointment. Please make a follow up appointment with your PCP within 1 week. The phone number is [phone]) Discharge Medications: New lithium carbonate 300 mg Tablet 300 mg PO BEDTIME 30 Days Qty: 30 0RF quetiapine 50 mg Tablet 150 mg PO BEDTIME 30 Days Qty: 90 0RF cholecalciferol (vitamin D3) [Vitamin D3] 10 mcg (400 unit) Tablet 10 mcg PO DAILY 30 Days Qty: 30 0RF Continued venlafaxine 75 mg capsule,extended release 24hr 75 mg PO DAILY 30 Days Qty: 30 0RF lamotrigine 100 mg tablet 100 mg PO BID 30 Days Qty: 60 0RF Discontinued quetiapine [Seroquel XR] 150 mg tablet extended release 24 hr 150 mg PO BEDTIME Qty: 14 0RF Discharge Orders: Discharge Order (Routine); Ordered 03/30/23 Ordered By: Bebo Bills Diet: Regular diet Activity on Discharge: As tolerated Stand Alone Forms: Patient Portal Discharge page, Community Support Care Plan Goals: Maintain mood and safe behaviors Take medications as prescribed Practice coping skills Continue with outpatient providers and reach out to them as needed Health Concerns: Mood stability and behaviors Plan of Treatment: Follow up with your PCP, psychiatric provider and other outpatient providers regarding above concerns Take medications as prescribed Assessment: Risk assessment at time of discharge:? Patient was interviewed prior to discharge and found to be fully oriented and without any SI or HI. Patient has insight and demonstrates good judgment in terms of wanting to pursue treatment. Patient is not in imminent risk of harm to self or others and has a safety plan that includes presenting to the closest ER or calling 911 if feeling unsafe.? Patient has been observed closely by nursing and unit staff throughout admission; patient has not engaged in any behaviors that suggest dangerousness to self or others and has demonstrated appropriate behaviors and impulse control Discharge Date/Time: 03/30/23 11:58
== END 2023-03-30 11:58 | disposition home or self-care (01) | DRG 885 ==
LOC: HO.ED 14:41 → HO.PM5 23:56
PROVIDERS: Psychiatry & Neurology Psychiatry; Admitting Provider Psychiatry & Neurology Psychiatry; Emergency Provider Emergency Medicine; Visit Provider Clinical Nurse Specialist Psychiatric/Mental Health, Adult
DX: F31.81 Bipolar II disorder (principal); R45.851 Suicidal ideations; F41.1 Generalized anxiety disorder; Z88.0 Allergy status to penicillin; Z20.822 Contact with and (suspected) exposure to COVID-19; Z79.899 Other long term (current) drug therapy
CPT/HCPCS: 36415; 80048; 80053; 80061; 80076; 80178; 80307; 81001; 81025; 82565; 84443; 84520; 85025; 87086; 87635; 99285; S9485

== ENCOUNTER 2023-04-24 10:45 | Outpatient (RCR) | payer OTHER, SELFPAY ==
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
[2023-04-06 12:49] VITALS: BP 122/84; PULSE 80; TEMP 36.6
[2023-04-06 12:52] VITALS: BMI 30.7
--- NOTE | 2023-04-06 13:22 | PC.ADMIT ---
Patient is a 27 year old female who was initially at the [facility] program however was referred to crisis d/t increased depression with SI plan and intent to overdose on her medications. Patient was subsequently admitted to inpatient behavioral health unit M/5 at [facility]. Patient is alert and oriented x4. Calm and cooperative. Presented with depressed mood and anxious affect. Reports inpatient was helpful however is glad to be back at [facility]. She reports she, is still very depressed . She wants to continue on the pattern of using coping skills and not self harming behaviors. Patient reports that she has had SI and plan since she was [age] years old reporting chronic thoughts however stated she does not have any intention of killing herself. Patient is not currently working and I asked her how she is supporting herself and if she is having any financial issues. Patient stated she applied for an extension of PFA and is anxious regarding this as she has not heard back as of yet. She reports she is still not able to work at this time d/t her present depressive symptoms. Reviewed patient's safety plan with her and gave her a copy of the plan if needed. Patient did state she could reach out to others or staff if her depression sxs worsen. Medications reconciled with patient and patient's discharge information from inpatient unit. She reports taking medications as prescribed.
--- NOTE | 2023-04-08 15:56 | HO.PHP ---
[facility] staff met with Darren after group 4. Darren informed the staff member that she is struggling with thoughts of wanting to engage in self-harm. PHP staff assessed for SI, plan or intent. Darren had mentioned having SI and a plan without intent. PHP staff explored if she has been implementing the suggestions that were made around cold compresses. Darren noted that she does utilize that but at times it does not work. Darren voiced the last time shse engaged in self-harming behavior was . [facility] staff asked if she could reach out to her support (sisters step mother) to see if she will be willing to put her into her safety plan by her accessing her when she is feeling that way and utilize her as a distraction to get her thoughts off of that. Darren agreed and noted that her sister's step mother is a good support.
--- NOTE | 2023-04-09 15:10 | HO.PHP ---
Clients case was reviewed and opened today in treatment team.
--- NOTE | 2023-04-14 10:42 | HO.PHP ---
[facility] sent an email to Darren's therapist due to a number not being provided to Darren. [facility] staff informed Darren's therapist around how she is participating in groups, her start date and her end date. [facility] staff stated at the end of the email if she has any further questions or concerns to contact the clinician. Darren mentioned that her therapist had noted that she will be reaching out this week. [facility] staff was receptive.
--- NOTE | 2023-04-14 10:45 | HO.PHP ---
Darren informed the clinician that she had a challenging conversation with her PCP yesterday, in which they discussed her struggles with restrictive eating and how her doctor diagnosed her with Anorexia. Darren mentioned that she would like support around the clinician holding her accountable with following through with the referral for a Optical Technician that her doctor recommended. [facility] staff stated that she can reach out to her with her today. Darren wasn't certain if that was what she wanted to do. PHP staff stated that the only other way to help with holding her accountable is by checking in to see if she reached out. Darren then agreed to doing it together. [facility] staff and Darren reached out to [facility] in [place] via telephone but it was noted in the automated response to utilize there website to refer due to responding quicker. Darren preferred doing it online opposed to leaving a VM. [facility] staff member assisted in completing the referral work with Darren and a referral was placed. Darren will be waiting on a response via email.
--- NOTE | 2023-04-14 11:44 | HO.PHPPROGNO ---
Subjective Subjective Date of Service: 04/14/23 Reason For Visit: MDD Healthcare Proxy: No Guardianship: No Medical Problems Affecting Mental Status: No Interim History: Darren is seen in follow-up as part of her current partial hospital engagement. She states that she is doing well and is finding the program helpful. This is not new for her. The addition of lithium while she was on the inpatient unit has been helpful with her depression. Current medications including Lamictal 200 mg a day, lithium carbonate 300 mg q.h.s. and Effexor XR 75 mg plus Seroquel XR 150 mg were reviewed individually. She denies any side effects. Questions about diagnosis discussed. No changes were made today Medication Compliance: Yes Side effects from medications: No Attending Groups: Yes Review of Systems Review of Systems Yes all other systems are reviewed and are negative Mental Status Exam Mental Status Exam Narrative: In today's visit she is alert, oriented and pleasant. Normal speech. Good eye contact. Affect is appropriate and varied. No signs of mood fluctuations. No signs of psychosis. Cognitively she is intact. No suicidal or homicidal ideations. Judgment is intact Diagnostics Vital Signs (24Hr): BMI result Body Mass Index 30.7 Assessment & Plan Assessment & Plan (1) Bipolar 2 disorder, major depressive episode: Status: Acute Code(s): F31.81 - Bipolar II disorder Plan Continue partial hospital program. Continue current medications. Patient educated on: diagnosis and medication risk/benefits Certification I certify that partial hospital treatment is medically necessary due to the symptoms and problems resulting from the patient's mental illness and the failure to treat the patient at the partial hospital level of care would likely result in the patient requiring inpatient psychiatric care which could not be prevented at a less intensive level of care. Total time managing care of this patient today ____ minutes. Discharge Plan Discharge Attending provider: Adan Abreu Medications: New quetiapine 150 mg tablet extended release 24 hr 150 mg PO BEDTIME Qty: 30 0RF Discontinued quetiapine 50 mg Tablet 150 mg PO BEDTIME 30 Days Qty: 90 0RF No Action lithium carbonate 300 mg Tablet 300 mg PO BEDTIME 30 Days Qty: 30 0RF cholecalciferol (vitamin D3) [Vitamin D3] 10 mcg (400 unit) Tablet 10 mcg PO DAILY 30 Days Qty: 30 0RF venlafaxine 75 mg capsule,extended release 24hr 75 mg PO DAILY 30 Days Qty: 30 0RF lamotrigine 100 mg tablet 100 mg PO BID 30 Days Qty: 60 0RF
--- NOTE | 2023-04-15 12:32 | HO.PHP ---
Addendum entered by Tara Porter 04/15/23 15:27: PHP staff also assessed for safety. Darren mentioned that she always has had SI with a plan but has no intent on acting on that. Darren mentioned that she wants to feel better and to be able to see a future but at this time finds it challenging with her mental health since she hasn't felt well for a while. Original Note: Prior to groups starting, Darren asked to meet with the clinician. Darren informed the clinician that she engaged in self-harming but noted she did not use a knife this time. [facility] staff member explored what she used. Darren began laughing out of embarassment and stated she used the razor from her pencil sharpner for makeup. Darren disclosed that she feels guilty and talked about what led to that. Darren also expressed that she should have tried implementing her coping skills prior to engaging in that act. Darren informed the clinician of what led up to the event, in which she talked about a conversation held with her partner. Darren mentioned that her partner struggled with SI and didn't think she was going to make it to 28 and now that she is where she is she is able to see a future for herself and with Darren. Darren noted that her partner hopes she is able to get to a point where she sees a future for herself. Darren talked about that is what made it hard because she does not see a future for herself. 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 Darren had mentioned those are things she wants to do but she can't picture that in her future. [facility] staff was receptive and suggested she further process this in group. Darren was receptive.
--- NOTE | 2023-04-16 15:12 | HO.PHP ---
[facility] staff met with Darren after the last group of the day. Darren asked the clinician if she has the worksheet on distorted thinking because she is unable to find hers. PHP staff informed her that she does. Darren stated she is struggling with her anxiety (feeling shaky) and thoughts with wanting to self-harm. Darren disclosed she would like to work on the worksheet to remind herself of what she can do when she does have distorted thoughts. PHP staff was receptive. [facility] staff explored with Darren if she is feeling safe. Darren stated so so. Darren voiced it is not in a suicidal way she just does not want to engage in self-harm. [facility] staff further assessed for saftey. Darren continues to note SI with a plan of overdosing on medication but has no intent on wanting to act on that plan. Darren talked about how seeing her grandfather has been bringing up a lot of anxiety and negative feelings, in which she is wanting to work on coping with those. Darren noted that she was glad the last group talked about coping skills. Darren was shaking in the office and the clinician suggested trying essential oils. PHP staff gave Darren Lavender to try to help with reducing her nerves. Darren appeared to regulate slightly and the shaking wasn't as intense. Darren talked about looking forward to seeing her brother rigoberto. [facility] staff also encouraged Darren to utilize the crisis line if she is struggling later tonight. Darren was receptive.
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
--- NOTE | 2023-04-20 14:45 | HO.PHP ---
PHP staff was informed that Darren was wanting to speak with the clinician but had left for the day, due to program ending. PHP staff followed up with Darren to review safety and to check in. Darren informed the clinician that she wanted to talk with the clinician about how Thursday had gone and will do so tomorrow. PHP staff was receptive and asked if she is feeling safe. Darren was receptive and presented with no safety concerns. Darren informed the clinician she had tried to utilize the distorted thinking worksheet and had a challenging time doing so and would like to review that to see how she does that. [facility] staff was receptive and noted that she will run a group on that tomorrow. Darren mentioned that will be helpful. PHP staff and Darren planned to meet prior to groups starting tomorrow.
--- NOTE | 2023-04-21 16:22 | HO.PHP ---
PHP staff met with Darren and reviewed what she wanted to meet around. Darren talked about the challenges she had during and after her doctors appointment on Thursday. Darren had mentioned that she had a panic attack prior to the doctor coming in but had found the doctor to be supportive and stepped her through everything. PHP staff was receptive. Darren had mentioned that after the appointment she was still struggling and having a challenging time returning to baseline, in which she ended up engaging in self-harming behaviors of cutting. Darren also mentioned that she had cut this morning due to her high level of anxiety. PHP staff reviewed the safety plan they developed around removing sharps. Darren was receptive and stated she didn't remove the sharp she had used. PHP staff encouraged Darren to process her feelings further in group and receive support from group members. PHP staff also noted to further process the trauma portion with her OP therapist. Darren was receptive.
--- NOTE | 2023-04-22 12:45 | HO.PHP ---
PHP staff met with Darren during lunch due to her wanting to meet. Darren had mentioned that she had a challenging time this morning due to the first group. PHP staff was receptive and stated that it is okay to do what she had done, if she found it triggering. PHP staff explored if there was something specific that was said that was triggering. Darren noted that although the group members did not go into details about what happened, she knew what they were talking about and found that challenging. Darren mentioned she has been having a lot of anxiety that has been increasing due to her thinking about her past trauma a lot more than usual. Darren disclosed if they talk like that again in group tomorrow she doesn?t think she will be able to stay for the day. PHP staff voiced that we do our best to remind the group about what information they disclose but unfortunately are unaware of what group members want to process for the day. Darren was receptive. PHP staff explored how Darren is feeling now and if she feels safe. Darren talked about self-harm being a challenge. PHP staff assessed if she has SI, Plan or intent. Darren said yes for SI and Plan and shook her head yes for Intent and quickly retracted that and said she is fine and safe. She can promise that she isn?t going to commit suicide but she can?t promise that she isn?t going to self-harm. PHP staff asked Darren if her plan is still the same. Darren mentioned it is with the medication. PHP staff asked what medication she has. Darren started listing a bunch of old prescriptions. PHP staff voiced that she thought she spoke with the provider here about disposing of those. Darren mentioned she had and didn?t get around to it yet. PHP staff expressed concerns and asked Darren if she could ask her sister?s mothers to take the medication or her girlfriend to dispose of it. Darren stated she could but is embarrassed. Darren continued to state she is not going to act on her plan and she is safe. Darren mentioned she does not want to go to inpatient. PHP staff disclosed if inpatient is necessary then we will have to have her evaluated. Darren continued to state she is safe and is worried about next week because she won?t have the program and then will be returning to work the week after next. PHP staff encouraged her to create a plan of what she wants to do that week. Darren mentioned she could do that but has a challenging time following through. PHP staff asked if she could have anyone hold her accountable for that week. Darren expressed concerns for her safety that week. PHP staff encouraged Darren if by the end of this week she is still struggling with safety, to please let the staff members know she needs inpatient. Darren was receptive and stated the thing is if she goes to inpatient, she wants to come back to [facility]. PHP staff asked Darren what she feels she would be gaining from the program that she hasn?t from the previous two. Darren mentioned that she likes the support from the providers and enjoys coming here. Darren acknowledged having the tools. PHP staff encouraged her to utilize her outside providers and suggested increasing her sessions to twice a week with her OP. Darren was receptive. PHP staff stated she is going to follow up as well with the OP. PHP staff asked if she contacted her med provider about the DBT that is provided through the agency. Darren disclosed that she hadn?t. PHP staff noted if she needs support with doing that she can as well. Darren said she will let the staff member know. ?Darren mentioned her girlfriend is coming over today at 7 PM. PHP staff asked what she is going to do during that free time. Darren was uncertain. PHP staff noted that she would like for her to think of a plan prior to leaving. Darren was receptive.
--- NOTE | 2023-04-22 13:20 | HO.PHP ---
[facility] staff member emailed [facility] OP therapist Sisi, to explore if she is able to increase sessions to twice a week. [facility] staff is awaiting a response back.
--- NOTE | 2023-04-22 14:10 | HO.PHP ---
[facility] staff members, Tara and Maisha, followed up with Darren to reassess if she needed to be evaluated by the care team. Darren informed the staff members that she created a plan so she does not have alone time, in which her step-father and her are going to spend time together. Darren then mentioned that her girlfriend is going to come over for [address] [facility] staff explored if her girlfriend will be sleeping over as well. Darren stated she would be. [facility] staff members also wanted to make sure there was a plan to dispose of the medication tonight, so that she has no access to follow through on her plan. Darren mentioned she plans on giving it to her sister?s mother?s . Maisha asked if we could contact her now to plan for that. Darren said she can text her because she is working. [facility] staff members were receptive. Darren was observed texting. [facility] staff was receptive and praised her for being able to create a plan for the day. Darren was receptive and stated that she will see the team tomorrow. [facility] staff members were in agreement.
--- NOTE | 2023-04-22 15:00 | HO.PHP ---
[facility] staff spoke with Darren?s OP therapist, Sisi, to review increasing sessions to twice a week. Sisi asked the [facility] staff member a few questions regarding safety and asked if there are safety concerns. [facility] staff informed her of continuous reports of SI with a plan and noted that her intent often fluctuates. Sisi explored if Darren is able to vocalize when feeling unsafe. [facility] staff noted that she is able to inform staff members when not feeling safe and has utilized support lines as well. Sisi was receptive and noted that she will be able to increase her sessions to twice a week since she is able to contract for safety and vocalize when she needs support. [facility] staff was receptive.
--- NOTE | 2023-04-23 11:18 | HO.PHPPROGNO ---
Subjective Subjective Date of Service: 04/23/23 Reason For Visit: MDD Healthcare Proxy: No Guardianship: No Medical Problems Affecting Mental Status: No Interim History: Darren is seen in follow-up as part of her current partial hospital engagement. She is scheduld for discharge tomorrow; she says she is anxious about discharge but does feel ready. she reports she is working on a plan to have structure after discharge before she returns to work on the 01 of april; she lives with her sister and will have her support. she will reach out to friends as well, she has appt with her her psychiatrst next week on april 29. She reports the depression is improving ad she is free of Si. she reports she has daily self harm urges and still cuts daily. she has done this for years; she states she had one year free of SIB in her 20s when she was happy with work and a new relationship; otherwise she ahs cut since she was 12 yrs old. she would like to try an increase inlithium as she feels the SIB is related to depression. we discussed lithium risk vs benefits and also alternatives including naltrexone. Current medications including Lamictal 200 mg a day, lithium carbonate 300 mg q.h.s. and Effexor XR 75 mg plus Seroquel XR 150 mg were reviewed individually. She denies any side effects. Questions about diagnosis discussed. Medication Compliance: Yes Side effects from medications: No Attending Groups: Yes Review of Systems Acute medical concerns: No Medical Review of Systems: unchanged Review of Systems Review of Systems Yes all other systems are reviewed and are negative Mental Status Exam Mental Status Exam Narrative: In today's visit she is alert, oriented and pleasant. she is anxious. Normal speech. Good eye contact. Affect is appropriate and varied. No signs of mood fluctuations. No signs of psychosis. Cognitively she is intact. No suicidal or homicidal ideations. Judgment is intact. reports daily urges to cut and SIB Patient Appearance: Well Grooomed Patient Orientation: Person, Place, Time and Situation Level of Consciousness: Appropriate and Alert Patient Behavior: Appropriate, Cooperative and Good Eye Contact Mood Description: Depressed Affect Description: Depressed Patient Cognition Impaired: No Ability to Follow Directions: Excellent Speech Pattern: Clear, Appropriate and Coherent Memory Description: Intact Judgement: Fair Diagnostics Vital Signs (24Hr): BMI result Body Mass Index 30.7 Assessment & Plan Assessment & Plan (1) Bipolar 2 disorder, major depressive episode: Status: Acute Code(s): F31.81 - Bipolar II disorder Plan Continue partial hospital program. Continue current medications Increase lithium to ER 450 mg at bedtime Education re need to hydrate and need for labs in 10-14 days which she will discuss with outpatient psychiatrist. Patient educated on: diagnosis, medication risk/benefits and therapeutic strategies Informed Consent: understands and further education needed Reason for contiued partial hosp. stay Substantial Risk for: harm to self, inability to function and rapid decompensation Certification I certify that partial hospital treatment is medically necessary due to the symptoms and problems resulting from the patient's mental illness and the failure to treat the patient at the partial hospital level of care would likely result in the patient requiring inpatient psychiatric care which could not be prevented at a less intensive level of care. Total time managing care of this patient today _40___ minutes. Discharge Plan Discharge Attending provider: Adan Abreu Medications: New quetiapine 150 mg tablet extended release 24 hr 150 mg PO BEDTIME Qty: 30 0RF lithium carbonate 450 mg tablet extended release 450 mg PO BEDTIME Qty: 14 0RF Continued lithium carbonate 300 mg Tablet 300 mg PO BEDTIME 30 Days Qty: 30 0RF Discontinued quetiapine 50 mg Tablet 150 mg PO BEDTIME 30 Days Qty: 90 0RF No Action cholecalciferol (vitamin D3) [Vitamin D3] 10 mcg (400 unit) Tablet 10 mcg PO DAILY 30 Days Qty: 30 0RF venlafaxine 75 mg capsule,extended release 24hr 75 mg PO DAILY 30 Days Qty: 30 0RF lamotrigine 100 mg tablet 100 mg PO BID 30 Days Qty: 60 0RF Stand Alone Forms: Patient Portal Discharge page Patient Education: Bipolar Disorder (GEN), Generalized Anxiety Disorder (GEN)
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
--- NOTE | 2023-04-23 16:12 | HO.PHP ---
[facility] staff assisted Darren with contacting [facility] regarding DBT. A [facility] staff member noted that Gaye will be reaching out to Darren next week about the program. [facility] staff and Darren were receptive.
--- NOTE | 2023-04-24 11:57 | PC.NURSE ---
Patient discharged today, 04/24/2023. Patient reports she is ready for discharge, denies SI/HI. Discharge plan including discharge medications reviewed with patient who verbalized understanding. Patient seen by Rita Victor NP for medication/discharge appointment yeater04/23/23. Discharge medication list faxed to out patient providers.
== END 2023-04-24 23:59 | disposition home or self-care (01) ==
LOC: HO.PHPA 10:45
PROVIDERS: Visit Provider Psychiatry & Neurology Psychiatry
DX: F31.81 Bipolar II disorder (principal); F41.1 Generalized anxiety disorder; Z79.899 Other long term (current) drug therapy
CPT/HCPCS: 90791; 90853

== ENCOUNTER → 2023-08-12 11:15 | Outpatient (BNV) | payer OTHER, SELFPAY | PROVIDERS: Visit Provider Psychiatry & Neurology Psychiatry | DX: F43.10 Post-traumatic stress disorder, unspecified (principal); F31.81 Bipolar II disorder; F50.02 Anorexia nervosa, binge eating/purging type; F41.3 Other mixed anxiety disorders | CPT/HCPCS: 90792; 99213; 99214 ==

== ENCOUNTER 2023-08-18 14:17 | Outpatient (REF) | payer OTHER, SELFPAY ==
--- NOTE | 2023-08-18 14:23 | ECG_ITS ---
Test Reason : cp, qtc check Blood Pressure : / mmHG Vent. Rate : 081 BPM Atrial Rate : 081 BPM P-R Int : 166 ms QRS Dur : 082 ms QT Int : 348 ms P-R-T Axes : 043 055 052 degrees QTc Int : 404 ms Normal sinus rhythm Nonspecific T wave abnormality Abnormal ECG No previous ECGs available Referred By: Sheila Pena Electronically Signed By:MIS DUQUE MD
[2023-08-18 15:59] LABS: Lithium 0.72 mmol/L (0.60-1.20)
[2023-08-18 16:07] LABS: Alanine Aminotransferase 13 U/L (0-31); Albumin Level 4.7 g/dL (3.5-5.0); Alkaline Phosphatase 64 U/L (39-117); Anion Gap 11 (12-20); Aspartate Amino Transferase 16 U/L (5-31); Bilirubin Total 0.4 mg/dL (0.0-1.0); Blood Urea Nitrogen 9 mg/dL (9-16); Calcium 9.6 mg/dL (8.4-10.2); Carbon Dioxide 25 mmol/L (22-29); Chloride 109 mmol/L (96-108); Estimated Glomerular Filt Rate > 60; Glucose Random 91 mg/dL (60-115); Potassium 3.8 mmol/L (3.3-5.1); Sodium 141 mmol/L (135-145); Total Protein 7.3 g/dL (6.5-8.0)
== END 2023-08-18 14:18 | disposition home or self-care (01) ==
LOC: HO.LAB 14:17
PROVIDERS: Visit Provider Psychiatry & Neurology Psychiatry
DX: F31.81 Bipolar II disorder (principal); R07.9 Chest pain, unspecified; F50.9 Eating disorder, unspecified; Z79.899 Other long term (current) drug therapy
CPT/HCPCS: 36415; 80053; 80178; 93005

== ENCOUNTER 2023-09-02 12:15 | Outpatient (RCR) | payer OTHER, SELFPAY ==
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
[2023-08-10 15:02] VITALS: BP 124/95; PULSE 85; RESP 12; TEMP 36.9
--- NOTE | 2023-08-10 15:33 | PC.ADMIT ---
Pt is a 28 y/o female self referred after increased thoughts of SI. Pt denies thoughts of SI currently with no intent. Pt reports she has been a pt at [facility] program in March of 2023 is currently looking for more support with the increased depression and anxiety. PMH includes depression, bipolar, anxiety and SI. Per integrative assessment, pt was recently hospitalized at [facility]. 07/22/23-07/30/23 due to suicidal ideation with self harm, plan and intent. Pt is alert and oriented x 4, calm, cooperative and engaging. Pt reports her support system is her family, friends and is also is part of a peer group. Medications reconciled with patient and pharmacy, reviewed med compliance and side effects. Safety plan reviewed and copy provided.
[2023-08-11 10:06] VITALS: BMI 29.5
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
--- NOTE | 2023-08-13 12:07 | PC.NURSE ---
Addendum entered by Hilda Stearns RN 08/13/23 12:51: I also discussed with Darren things she could do other than self harm when feeling strong emotions. She stated she could draw, and has used icepacks and ice in the past that has been helpful, and to reach out to Jono her sibling that she lives with. Original Note: At 12:00 Darren asked to speak with me as she stated she was going to have the nurse who was working on Thursday look at some cuts on her L upper arm, self inflicted, however states she did not see the nurse at that time and wanted to meet with me. I looked at her L upper arm. She had 6 small cuts, 4 that were superficial and scabbed over and 2 minor cuts that were approximately one inch long that may need some steri strips. The areas are not actively bleeding. She stated she cut herself yesterday at home. Reports a long history of cutting herself since age 12. She feels it is harm reduction. She reports chronic SI with a plan however stated she has no intention of killing herself. She stated she would not want to do that to her sibling Jono who is currently staying with her. She also is future oriented talking about how she has a new Job at [employer] as she recently left her old job as she felt she was overworked and underpaid. She stated she is getting more pay at her new job and eventually would like to go back to school. I had Darren call her PCP in my office to f/u if steri strips are needed on those 2 areas. She had to leave a message for her doctor to call her back. She is awaiting a call back from her doctor's office to schedule an appointment.
--- NOTE | 2023-08-14 08:21 | HO.PHP ---
The clients case was reviewed and opened in treatment team.
--- NOTE | 2023-08-14 10:51 | PC.NURSE ---
Addendum entered by Hilda Stearns RN 08/14/23 11:03: Patient reports chronic SI with plan and no intent to kill herself. When I asked her about any intent she stated, absolutely not . She stated she has plans to be with her girlfriend this weekend and is looking forward to a gathering she was invited to on Thursday and spending time in [facility] with her Girlfriend. Original Note: I meet with Darren to f/u with appointment with PCP to evaluate need for stitches in L upper arm. Darren stated they never called her back. She stated she cut again last night. She bandaged the area on her L upper arm. I evaluated the area and looks like she cut in the same area that looked like it needed stitches yesterday. The area is one inch long. She called her PCP in my office and spoke to the nurse. The nurse stated they were not able to fit her in today. She was advised to go to urgent care or the emergency room. Darren stated she would go to urgent care as she did not want to go to the emergency room. She was told she could go to the urgent care attached to the hospital at [address] [place] [address], Darren stated she knows where this is. She texted her step father and asked him to pick her up to bring her to urgent care.
--- NOTE | 2023-08-14 15:41 | HO.PHPPROGNO ---
Subjective Subjective Date of Service: 08/14/23 Reason For Visit: depression, SI, anxiety, ED Interim History: Patient was seen at the end of the day today, requesting to speak with this provider about lithium. She was accompanied by staff who note that patient agreed to go to the ED after our meeting for cutting her shoulder which we proceed to review. She had not been fully forthcoming about the frequency in which she has been missing her lithium on account of the restricting. She insists that she does not have a problem with being on lithium and in fact says she recognizes she does better on it when taking it consistently. However her restricting behaviors have continued to be so severe this month, that she is still having trouble eating enough to ensure she is able to take the medication without feeling sick. She generally has been compliant with the AM dose but often misses the PM dose. She is averaging no more than 1 or 2 days a week where she takes both doses of lithium. Some weeks she doesnt have any days where she took both doses. Most days she takes only one dose. About 1 day/wk misses both doses. She will miss doses in anticipation of the N/V because she has not eaten. We discuss how much she is finding she would need to eat in order to tolerate the medication, allowing it to better treat the depression which is felt to be driving force behind the restrictive eating behaviors and self harming. Mental Status Exam Mental Status Exam Narrative: Patient Appearance: Appropriate Patient Orientation: Person, Place, Time and Situation Level of Consciousness: Awake and Alert Patient Behavior: Appropriate Mood Description: Depressed and Anxious Affect Description: Constricted Patient Cognition Impaired: No Ability to Follow Directions: Good Speech Pattern: Clear and Spontaneous Speech Memory Description: Intact Hallucinations: None Thought Process: Goal Oriented Thought Content: relevant to stressors, no paranoid or delusional content Judgement and Insight: fair/good Diagnostics Vital Signs (24Hr): BMI result Body Mass Index 29.5 Assessment & Plan Assessment & Plan (1) Post-traumatic stress disorder, unspecified: Status: Acute Code(s): F43.10 - Post-traumatic stress disorder, unspecified (2) Bipolar 2 disorder, major depressive episode: Status: Acute Code(s): F31.81 - Bipolar II disorder (3) Generalized anxiety disorder: Status: Acute Code(s): F41.1 - Generalized anxiety disorder (4) Eating disorder, unspecified: Status: Acute Code(s): F50.9 - Eating disorder, unspecified Plan start naltrexone 50 mg qhs (start 1/2 tablet for now, titrate to 1 tab as tolerated) to target EDB and SIB start brief course of ondansentron 4 mg BID prn N/V to promote adherence to lithium start prn Seroquel 25 mg, may take 1-2 tabs up to twice daily as needed for agitation (as rescue med for intrusive thoughts/urges to self harm) Certification I certify that partial hospital treatment is medically necessary due to the symptoms and problems resulting from the patient's mental illness and the failure to treat the patient at the partial hospital level of care would likely result in the patient requiring inpatient psychiatric care which could not be prevented at a less intensive level of care. Total time managing care of this patient today ____ minutes. Discharge Plan Discharge Attending provider: Sheila Pena Medications: New ondansetron HCl 4 mg tablet 4 mg PO BID PRN (Reason: nausea and vomiting) Qty: 10 0RF naltrexone 50 mg tablet 50 mg PO DAILY Qty: 14 0RF quetiapine 25 mg tablet 25 mg PO BID PRN (Reason: agitation) Qty: 30 0RF No Action cholecalciferol (vitamin D3) [Vitamin D3] 10 mcg (400 unit) Tablet 10 mcg PO DAILY 30 Days Qty: 30 0RF venlafaxine 75 mg capsule,extended release 24hr 75 mg PO DAILY 30 Days Qty: 30 0RF lamotrigine 100 mg tablet 100 mg PO BID 30 Days Qty: 60 0RF quetiapine 150 mg tablet extended release 24 hr 150 mg PO BEDTIME Qty: 30 0RF lithium carbonate 450 mg tablet extended release 450 mg PO BEDTIME Qty: 14 0RF venlafaxine 37.5 mg capsule,extended release 24hr 37.5 mg PO DAILY hydroxyzine pamoate 50 mg Capsule 50 mg PO QID PRN (Reason: Anxiety) gabapentin 100 mg capsule 100 mg PO BID Stand Alone Forms: Patient Portal Discharge page
--- NOTE | 2023-08-14 17:27 | HO.PHP ---
Darren informed [facility] staff of a concern she had where she engaged in self-harming behaviors. Darren mentioned this event was scary for her because she believes she dissociated while engaging in those behaviors and when she came too, she was bleeding a lot. PHP staff assessed if Darren would like to develop a safety plan around locking sharps away. Darren was not receptive to that at this time. Darren had mentioned that she has a busy weekend and doesn't believe she will engage in that. PHP staff encouraged Darren to reach out to her supports and if her supports aren't available then to contact the crisis line. Darren was receptive. PHP staff also encouraged Darren to discuss these concerns in a group setting. Darren noted she didn't want to trigger anyone. PHP staff provided Darren with verbal prompts of how to disclose that without triggering individuals. Darren was in agreement. Darren had mentioned she will be safe and shared what she is doing for her weekend. PHP staff member was receptive. Darren will be here on Thursday.
[2023-08-17 12:00] VITALS: BP 130/80; PULSE 80
--- NOTE | 2023-08-17 12:01 | PC.NURSE ---
Patient stated she went to urgent care and they did not give her stitches in that area as they told her she waited too late to get stitches. She stated she was put on antibiotics. The area on her L upper arm looks like it is healing with no drainage. She stated she has another appointment with her PCP. Education provided to patient. Patient stated she had an appointment with [facility] in [place] and eating d/o clinic and they wanted her to go inpatient however she stated she can not go inpatient as she is starting her new job on 08/31/23 and she needs to start working as she is currently struggling with her finances. She stated she is planning on attending virtual eating d/o groups twice a week with [facility] and is seeing a low altitude air defense gunner once a week. She stated she has been restricting food.
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
--- NOTE | 2023-08-19 09:38 | PC.NURSE ---
Reviewed Lab results CL 109, Gap 11 and EKG wet read results Normal Sinus Rhythmn, Nonspecific T wave abnormality with Dr Pena along with patient no c/o chest pain last night or today. No new orders.
--- NOTE | 2023-08-19 11:46 | PC.NURSE ---
Patient reports chronic Si with plan. She reports she has thoughts to overdose on her medications however stated she has no intent to do this. As a precaution I asked Darren if someone could take her extra medications as she stated she gets a 90 day supply at a time. She agreed. She texted her sister Jono's step mother who lives down stairs and asked her if she can hold on to extra medication as a precaution as she told her that [facility] suggested this. She also texted Jono's step mother that she has no intent to overdose on her medications. Jono's step mother agreed to hold on to Darren extra medications. Darren is also thinking about going to an eating disorder clinic and is going to contact her new job to see if she can extend the start date for medical reasons. She stated she would let [facility] staff Tara know as well that she is interested in the program.
--- NOTE | 2023-08-19 12:25 | HO.PHP ---
[facility] staff member met with Darren, in which she expressed concerns around her EKG coming back as concerning. Darren noted that the conclusion of those results made her want to focus on her health and is going to contact her work place to have her time extended. Darren expressed concerns around losing her job. Darren disclosed she is going to engage in the residential program for eating disorders. [facility] staff member was receptive and explored if she will be contacting her workplace [employer]. Darren disclosed she will be. [facility] staff was receptive and praised her for taking care of her health.
--- NOTE | 2023-08-24 08:23 | PC.NURSE ---
Faxed lab results CL 109, Gap 11, Li 0.72 and EKG results Non-specific T wave abnormality to patient's PCP Beth Mcginnis on 08/20/23.
--- NOTE | 2023-08-25 13:23 | HO.PHP ---
[facility] staff member followed up with Darren after group three to review her plan. Darren noted that her plan was to take medication but she stated that she has no means to that since she provided them to a support to remove. Darren did state she had other thoughts but does not have any plan set in place. Darren informed the clinician that she would like to extend her time within the program since she is not doing well. [facility] staff stated she would have to review with the team and asked Darren if she feels she needs to be evaluated by crisis. Darren expressed that she has no plan to act on anything and disclosed that the hospital level of care is not helpful to her and will make things worse. Darren continued to state she will be safe and attending program tomorrow. [facility] staff was receptive.
--- NOTE | 2023-08-26 15:34 | PC.NURSE ---
Patient stated she had a PCP appointment last after group. (EKG results from PHP faxed to PCP 08/20/23, fax not working 08/19/23). She stated she had an EKG at her doctors office and it was WNL. She stated she has a history of heart palpitations and her doctor ordered a cardiac halter monitor which she started wearing on Thursday and is currently wearing and is to return to cardioogy today 08/26/23.
--- NOTE | 2023-08-28 13:40 | HO.PHP ---
PHP staff followed up with Darren after the third group due to her expressing having SI with a plan and wasn't clear on the intent in group. Darren noted she has no plans to act on anything and voiced that she has a busy weekend and will be spending time with a friend rigoberto. PHP staff was receptive. Darren mentioned that she will be here on Thursday.
--- NOTE | 2023-08-28 15:06 | HO.PHPPROGNO ---
Subjective Subjective Date of Service: 08/28/23 Reason For Visit: depression, SI, anxiety, ED Interim History: Still feeling very low, constant SI. Purging and cutting have been almost daily at this point, some of this due to anticipating discharge today, however she got an extension into next week and is feeling relieved about this. She has been more consistent in the past 2 weeks with lithium than she was leading up to [facility] however this week she reports having gotten sick last weekend. She suspects she did not eat enough in the AM before taking the lithium and by the time she realized it was too late for the extra Zofran she carries with her to help her and wound up vomiting. Since then she was a more apprehensive about taking the lithium. She says she missed 2 doses this week. She is aware that risk fo dehydration and electrolyte imbalanace with purging on lithium risks renal impairment/injury. She says she tried to stay hydrated. She cant say she is feeling any better with improved compliance on the lithium these past 2 weeks. Complains of low mood, high emotionality, reactivity, irritability, severe anxiety, panic sx, traumatic flashbacks, disturbances in sleep due to nightmares. Seroquel is helpful for sleep but has difficulty getting up in the morning,especially if she takes more Seroquel to better help with sleep. She is waiting for cardiac results from recent Holter monitor, pending start at [facility] next week. She continues on naltrexone but is not sure if it helping given uptick in self-destructive impulses, denies any adverse effects. Despite reports, she does present as notably more groomed, improved complexion. Medication Compliance: Intermittent Side effects from medications: No Attending Groups: Yes Mental Status Exam Mental Status Exam Narrative: Alert, oriented, in no acute distress. Patient Appearance: Well Grooomed Patient Behavior: Appropriate Mood Description: Depressed and Anxious Affect Description: Anxious Patient Cognition Impaired: No Ability to Follow Directions: Good Speech Pattern: Clear, Spontaneous Speech and Coherent Memory Description: Intact Hallucinations: None Delusions: Not Present Thought Process: Linear Thought Content: positive for Obsessional Thoughts, positive for Circumstantial and positive for Suicidal Ideation Judgement: Fair Diagnostics Vital Signs (24Hr): BMI result Body Mass Index 29.5 Assessment & Plan Assessment & Plan (1) Complex posttraumatic stress disorder: Status: Acute Code(s): F43.10 - Post-traumatic stress disorder, unspecified Assessment and Plan: complex PTSD (2) Bipolar 2 disorder, major depressive episode: Status: Acute Code(s): F31.81 - Bipolar II disorder (3) Eating disorder, unspecified: Qualifiers: Eating disorder type: binge-eating purging type anorexia nervosa Qualified Code(s): F50.02 - Anorexia nervosa, binge eating/purging type Status: Acute Code(s): F50.9 - Eating disorder, unspecified Assessment and Plan: F50.02 - Anorexia nervosa, binge eating/purging type (4) Other mixed anxiety disorders: Status: Acute Code(s): F41.3 - Other mixed anxiety disorders Plan We are considering a different mood stablizer as it's unclear whether patient is benefitting from lithium given compliance issues. the risks related to lithium seem to outweigh the potential benefit when taking into consideration her chronic struggles with purging which already put her at risk of electrolytic imbalance,dehydration impacting cardiac and renal function, respectively. From a practical standpoint, she does not seem to be a good candidate for continued lithium treatment. She continues to struggle with suicidal ideation and behaviors. She is also up against sedation and daytime fatigue which precludes further titration to better target mood, anxiety, agitation. She is agreeable to trying Abilify, we will also start prazosin to better help with sleep, PTSD symptoms. If Abilify tolerated will plan to cross titrate, and then taper off Seroquel especially if prazosin can help with sleep in place of the Seroquel, thus mitigating risk of polypharm w 2 neuroleptics. start Abilify 5 mg qd (if tolerated will titrate to 10 mg) continue Seroquel 150 mg qhs for now (may consider tapering if Abilify effective for mood regulation, impulse control and prazosin helps with sleep) start prazosin 1 mg BID plan to lower lithium ER 450 mg to once daily dosing increase naltrexone to 75 mg qd continue Lamictal 150 mg BID continue other medications: venlafaxine ER 150 mg, hydroxyzine, gabapentin Patient educated on: diagnosis and medication risk/benefits Informed Consent: understands Reason for contiued partial hosp. stay Substantial Risk for: harm to self, rapid decompensation and med/psych decompensation Certification I certify that partial hospital treatment is medically necessary due to the symptoms and problems resulting from the patient's mental illness and the failure to treat the patient at the partial hospital level of care would likely result in the patient requiring inpatient psychiatric care which could not be prevented at a less intensive level of care. Total time managing care of this patient today _30___ minutes. Discharge Plan Discharge Attending provider: Sheila Pena Medications: New naltrexone 50 mg tablet 50 mg PO DAILY Qty: 14 0RF aripiprazole 5 mg tablet 5 mg PO DAILY Qty: 14 0RF prazosin 1 mg capsule 1 mg PO BID Qty: 20 0RF Continued ondansetron HCl 4 mg tablet 4 mg PO BID PRN (Reason: nausea and vomiting) Qty: 6 0RF No Action cholecalciferol (vitamin D3) [Vitamin D3] 10 mcg (400 unit) Tablet 10 mcg PO DAILY 30 Days Qty: 30 0RF venlafaxine 75 mg capsule,extended release 24hr 75 mg PO DAILY 30 Days Qty: 30 0RF lamotrigine 100 mg tablet 100 mg PO BID 30 Days Qty: 60 0RF quetiapine 150 mg tablet extended release 24 hr 150 mg PO BEDTIME Qty: 30 0RF lithium carbonate 450 mg tablet extended release 450 mg PO BEDTIME Qty: 14 0RF venlafaxine 37.5 mg capsule,extended release 24hr 37.5 mg PO DAILY hydroxyzine pamoate 50 mg Capsule 50 mg PO QID PRN (Reason: Anxiety) gabapentin 100 mg capsule 100 mg PO BID Stand Alone Forms: Patient Portal Discharge page Patient Education: Naltrexone (By mouth), Depression (DC)
--- NOTE | 2023-08-28 15:15 | HO.PHP ---
[facility] staff member received a call from Darren's therapist, Sisi Bull, who was exploring when Darren's end date will be since we extended her. [facility] staff noted Thursday will be her last day. Darren's therapist was receptive. Darren's therapist explored how Darren has been doing in groups. [facility] staff stated that Darren has been struggling due to processing a traumatic situation. [facility] staff member voiced that she encouraged Darren to focus on building skills to manage those emotions and feelings opposed to processing the trauma. Darren's therapist voiced that she is doing the same for her as well prior to approaching the trauma. [facility] staff member and Darren's therapist also touched on the self-harming behaviors. Darren's therapist thanked the clinician for her support.
--- NOTE | 2023-08-31 14:17 | PC.NURSE ---
Darren stated that the results of her cardiac halter monitor were normal.
--- NOTE | 2023-09-01 14:42 | P.PNPSP_ITS ---
Subjective Subjective Date of Service: 09/01/23 Reason For Visit: depression, SI, anxiety, ED Interim History: Patient seen for follow up, no major changes. She is slated for discharge tomorrow and will be starting at [facility] that evening. She denies any acute issues or concerns. SHe has been compliant with medications, denies any adverse effects. Medication has been well-tolerated incuding ABilify which was started last week. We have cut down dose of lithium to once daily dosing. We reviewed medications and treatment plan. She is in agreement with plan. Medication Compliance: Yes Side effects from medications: No Review of Systems Acute medical concerns: No Mental Status Exam Mental Status Exam Narrative: Alert, oriented, in no acute distress. Patient Appearance: casually dressed, grooomed Patient Behavior: Appropriate Mood Description: Depressed and Anxious Affect Description: brighter, more range of affect Patient Cognition Impaired: No Ability to Follow Directions: Good Speech Pattern: Clear, Spontaneous Speech and Coherent Memory Description: Intact Hallucinations: None Delusions: Not Present Thought Process: Linear, coherent Thought Content: endorses SI thoughts, vague plan without intention. Future- oriented Judgment: Fair but adequate Insight: fair, adequate Diagnostics Vital Signs (24Hr): BMI result Body Mass Index 29.5 Assessment & Plan Assessment & Plan (1) Complex posttraumatic stress disorder: Status: Acute Code(s): F43.10 - Post-traumatic stress disorder, unspecified (2) Bipolar 2 disorder, major depressive episode: Status: Acute Code(s): F31.81 - Bipolar II disorder (3) Eating disorder, unspecified: Qualifiers: Eating disorder type: binge-eating purging type anorexia nervosa Qualified Code(s): F50.02 - Anorexia nervosa, binge eating/purging type Status: Acute Code(s): F50.9 - Eating disorder, unspecified (4) Other mixed anxiety disorders: Status: Acute Code(s): F41.3 - Other mixed anxiety disorders Plan Plan for discharge tomorrow from [facility] WIll transition to [facility] this week Continue medications as noted above - will follow up with med provider at [facility], [facility] providers Refills sent to pharmacy Certification I certify that partial hospital treatment is medically necessary due to the symptoms and problems resulting from the patient's mental illness and the failure to treat the patient at the partial hospital level of care would likely result in the patient requiring inpatient psychiatric care which could not be prevented at a less intensive level of care. Total time managing care of this patient today __30__ minutes. Discharge Plan Discharge Attending provider: Sheila Pena Medications: New aripiprazole [Abilify] 10 mg tablet 10 mg PO BEDTIME 14 Days Qty: 14 0RF prazosin 2 mg capsule 2 mg PO BID 14 Days Qty: 28 0RF Rx Instructions: hold for dizziness, faintness; hold for HR<60 or DBP<60 venlafaxine 37.5 mg capsule,extended release 24hr 37.5 mg PO DAILY 14 Days Qty: 14 0RF Rx Instructions: Total of 112.5 mg daily lamotrigine 150 mg tablet 150 mg PO BID 14 Days Qty: 28 0RF Continued cholecalciferol (vitamin D3) [Vitamin D3] 10 mcg (400 unit) Tablet 10 mcg PO DAILY 30 Days Qty: 30 0RF gabapentin 100 mg capsule 100 mg PO BID ondansetron HCl 4 mg tablet 4 mg PO BID PRN (Reason: nausea and vomiting) Qty: 6 0RF venlafaxine 75 mg capsule,extended release 24hr 75 mg PO DAILY 14 Days Qty: 14 0RF Rx Instructions: Total of 112.5 mg daily Changed prazosin 1 mg capsule 1 mg PO QD-BID PRN (Reason: Anxiety) Qty: 20 0RF naltrexone 50 mg tablet 75 mg PO DAILY 14 Days Qty: 21 0RF quetiapine 150 mg tablet extended release 24 hr 150 mg PO BEDTIME PRN (Reason: sleep, agitation) Qty: 30 0RF lithium carbonate 450 mg tablet extended release 450 mg PO DAILY 14 Days Qty: 14 0RF Discontinued lamotrigine 100 mg tablet 100 mg PO BID 30 Days Qty: 60 0RF venlafaxine 37.5 mg capsule,extended release 24hr 37.5 mg PO DAILY hydroxyzine pamoate 50 mg Capsule 50 mg PO QID PRN (Reason: Anxiety) Stand Alone Forms: Patient Portal Discharge page Patient Education: Naltrexone (By mouth), Depression (DC)
== END 2023-09-02 23:59 | disposition home or self-care (01) ==
LOC: HO.PHPA 12:15
PROVIDERS: Visit Provider Psychiatry & Neurology Psychiatry
DX: F43.10 Post-traumatic stress disorder, unspecified (principal); F31.81 Bipolar II disorder; F50.02 Anorexia nervosa, binge eating/purging type; F41.1 Generalized anxiety disorder; Z79.899 Other long term (current) drug therapy
CPT/HCPCS: 90791; 90853

== ENCOUNTER 2023-12-23 08:13 | Outpatient (REF) | payer OTHER, SELFPAY ==
[2023-12-23 08:33] LABS: MANUAL DIFF FLAG NO
[2023-12-23 09:16] LABS: Basophils Percent Auto 0.4 % (0-2); Eosinophils Percent Auto 0.2 % (0-4); Hemoglobin 12.5 g/dl (12.0-16.0); Imm Gran Abs Auto 0.01 X10*3/uL (0.00-0.03); Imm Gran Pct Auto 0.2 % (0.0-0.4); Lymphocytes Absolute Auto 1.6 X10*3/uL (1.2-4.9); Mean Corpuscular HGB Conc 32.9 g/dl (31.0-35.0); Mean Corpuscular Hemoglobin 28.5 pg (27.0-33.0); Mean Corpuscular Volume 86.8 fL (80.0-98.0); Monocytes Absolute Auto 0.3 X10*3/uL (0.1-1.2); Monocytes Percent Auto 6.5 % (2-11); Neutrophils Absolute Auto 3.1 x10*3/uL (2.0-8.3); Neutrophils Percent Auto 61.7 % (45-73); Platelet Count 169 X10*3/uL (160-400); Red Blood Count 4.38 X10*6/uL (4.20-5.50); Red Cell Distribution Width 14.5 % (11.0-16.0)
[2023-12-23 09:23] LABS: Estimated Average Glucose 82 mg/dL; Hemoglobin A1c % 4.5 % (<6.0)
[2023-12-23 09:40] LABS: Lithium 0.59 mmol/L (0.60-1.20)
[2023-12-23 10:30] LABS: Alanine Aminotransferase 9 U/L (0-31); Albumin Level 4.6 g/dL (3.5-5.0); Alkaline Phosphatase 62 U/L (39-117); Anion Gap 12 (12-20); Aspartate Amino Transferase 13 U/L (5-31); Bilirubin Total 0.9 mg/dL (0.0-1.0); Blood Urea Nitrogen 6 mg/dL (9-16); Calcium 9.5 mg/dL (8.4-10.2); Carbon Dioxide 24 mmol/L (22-29); Chloride 107 mmol/L (96-108); Estimated Glomerular Filt Rate > 60; Glucose Fasting 97 mg/dL (60-99); Magnesium 2.4 mg/dL (1.6-2.6); Phosphorus 2.5 mg/dL (2.7-4.5); Potassium 3.4 mmol/L (3.3-5.1); Sodium 140 mmol/L (135-145); Total Protein 7.4 g/dL (6.5-8.0)
[2023-12-23 10:45] LABS: Free T4 (Free Thyroxine) 0.71 ng/dL (0.71-1.85); Thyroid Stimulating Hormone 1.82 uIU/mL (0.32-4.0); Vitamin D 25-OH Total 17.9 ng/mL (>30)
[2023-12-23 14:57] LABS: Vitamin B12 216 pg/mL (200-900)
== END 2023-12-23 08:14 | disposition home or self-care (01) ==
LOC: HO.LAB 08:13
PROVIDERS: PCP Student in an Organized Health Care Education/Training Program; Visit Provider Psychiatry & Neurology Psychiatry
DX: F31.81 Bipolar II disorder (principal); Z79.899 Other long term (current) drug therapy
CPT/HCPCS: 36415; 80053; 80178; 82306; 82607; 83036; 83735; 84100; 84439; 84443; 85025

== ENCOUNTER → 2023-12-23 11:00 | Outpatient (BNV) | payer OTHER, SELFPAY | PROVIDERS: Visit Provider Psychiatry & Neurology Psychiatry | DX: F31.81 Bipolar II disorder (principal); F50.02 Anorexia nervosa, binge eating/purging type; F43.10 Post-traumatic stress disorder, unspecified; F60.3 Borderline personality disorder | CPT/HCPCS: 90792; 99214 ==

== ENCOUNTER 2023-12-25 09:00 | Outpatient (RCR) | payer OTHER, SELFPAY ==
[2023-12-16 11:49] VITALS: BP 124/82; PULSE 80; TEMP 37.5; BMI 27.8
--- NOTE | 2023-12-16 12:48 | PC.ADMIT ---
Patient is a 28 year old single female who was referred to [facility] by her therapist d/t increased depression with SI with thoughts to overdose on her medication or cut however denied any intention of killing herself. Patient stated, My SI has been pretty high, I have plans but no intent behind them . I asked her what stops her from following through and she stated, I have a girlfriend and dog I really love a lot and my brother Jono is my best friend and I would not want to do anything to them . Regarding plans she stated, I've had one of them for most of my life and the other one is relatively new as of last year. Reports thoughts to overdose or cutting. Patient stated her therapist wanted her to go inpatient however they made a compromise which consisted of Jono, Darren's brother, who is now in charge of her medications in addition to holding on to all the sharps in the home as precaution. Patient currently is living with her brother Jono and her sister in [facility] both of whom are supportive. Patient stated she does not want to go inpatient and stated that [facility] has helped her in the past. Patient has a long history self harming behavior via cutting her thighs, arms, and legs. She reports the last time she cut was 2 days ago. We discussed alternatives to self harm. Patient stated she talked to HR at her new job who collaborated with her boss to have 3 weeks off unpaid to attend [facility]. Patient picked up Thursday shifts at work for financial reasons. Darren is alert and oriented x4. Calm and cooperative. She presented with depressed mood and anxious affect. She reports suicidal thoughts and plans however denied any intent to kill herself. See above. Patient given a copy of her safety plan and I reviewed the plan with her. Medications reconciled with patient and patient's pharmacy. She reports she is taking the medications as prescribed.
--- NOTE | 2023-12-17 12:44 | PC.NURSE ---
Darren showed me her lithium level results on her patient portal via her phone done on 12/08/[address] Pena is aware.
--- NOTE | 2023-12-17 16:29 | HO.PHP ---
Clients case has been opened and reviewed in teams.
--- NOTE | 2023-12-17 16:29 | HO.PHP ---
At roughly 1:45 screen writer checked in with pt to assess for safety before leaving for the day since pt reported she had SI with a plan. During meeting, pt stated she struggles with this daily and has so for many years and feels she will for the rest of her life. Stated it is not increased, no intent. States she has many supports at home today. A friend is going to come over later today and will sleep over, pt is looking forward to this. Pt identified several supports she will call if she experiences SI with a plan and intent, including her therapist. Pt affect was clear, pleasant, bright, smiled and thanked screen writer for checking in. Pt confirmed she is safe.
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
--- NOTE | 2023-12-21 15:30 | HO.PHP ---
At 2pm consumer loan underwriter checked in to assess pt safety since pt was not able to stay to meet with the doctor. Pt reported she had an appt she needed to be home for so had to leave but briefly checked-in. Pt reported she continued to have SI with the 'same plan' but denied intent. Acknowledged her SI as chronic, stated she felt currently safe and denied needing to be assessed by crisis, pt stated hse had several activities lined up this afternoon and this evening that she is looking forward to after leaving [facility] (a virtual appt, a friend visiting her later and her dog returning home today). Turning Machine Operator informed pt that her therapist attempted to contact [facility] staff today. [facility] staff attempted several times to call her therapist back, Sisi at but was unable to reach her. Pt was aware what it was in regards to, the conversation pt had with Dr. Pena on Thursday and stated she would contact her therapist by text and ask her to call [facility] again tomorrow. Pt checked in as safe. Pt was future-oriented upon meeting, appreciative of consumer loan underwriter checking in and said she will be in tomorrow.
--- NOTE | 2023-12-21 15:43 | HO.PHP ---
At roughly 3pm Darren's therapist, Sisi Bull, called freelance writer to get an update on her status. Therapist informed staff that she is not able to provide Darren with telephone support on the weekends and would like [facility] staff to know that while Darren is at [facility] she is not doing the daily check-ins during the week or weekends. Therapist inquired of pt's aftercare plan and suggested a DBT group however pt's therapist is via telehealth and in the [place] area so is unaware of local resources for Darren. Sisi expressed her concerns and was open to suggestions for Darren. Sisi was informed of Pt's potential discharge dates.
--- NOTE | 2023-12-22 14:15 | HO.PHP ---
Receptionist Scheduler checked-in with pt for roughly 5 minutes after Wrap-up group, at 12:30, to assess for safety and to update pt on conversation with her therapist yesterday. Pt was already aware, stated she spoke with her yesterday as well. Pt expressed concern about being discharged on the if her insurance does not extends more days. Pt was open to suggestions for community aftercare supports she can utilize during her time between partial and returning to work. Suggestions including group in the community run by [place] vivi [place] , [facility], [facility] and the [facility]. Pt is also open to a DBT group that is not during the day and does not interfere with her current services. Pt states she has a telehealth therapy session later today. Pt continues to reports SI with a plan but denies intent, stated she was safe and had activities planned for today after PHP (as mentioned in the Wrap-up group note).
--- NOTE | 2023-12-22 22:27 | HO.PHPPROGNO ---
Subjective Subjective Date of Service: 12/22/23 Reason For Visit: MDD Medication Compliance: Yes Side effects from medications: No Attending Groups: Yes Review of Systems Acute medical concerns: No Patient seen for follow up, as she continues to express struggles with feeling hopeless and depression. Chronic SI is still there no changes from last week. Same intermodal customer service plans as usual (to overdose or cut self). She denies having engaged in any self harming behaviors over the weekend. She followed through with plans as we had discussed as per our saety planning and discussion with her broenriqueta De La Cruz on Thursday. Her brother continues to hold onto her medications and the sharps in the house (in reference to her plans). I ask about knives and she said there are dull knives in the house, she denies feeling compelled to try cutting with them but was agreeable to contacting her brother, which she did, to ask them to hold onto the knives in the kitchen. She started back on the naltrexone to help target SIB, EDB. She reports having a lot of anxiety at a 7 out of 10 in severity also feeling emotionally exhausted . She reports lot of mood swings although often presents with constricted affect, even somewhat brighter than expected at times). Lamcital and lithium help with mood stability and depression, but only partially. She is currently on 150 mg Seroquel for sleep (not felt to be helpful for anxiety, mood, or anything other than sleep) she has had no other atypical mood stabilizer trials. We discuss a number of neuroleptic options and try to problem solve some of the eating issues, she expresses a dilemma over wanting to be on treatment for Bipolar Depression but not wanting to gain weight (as is the case with many of the antipsychotic meds) but also requiring adequate caloric intake with medications like Latuda or Geodon which have less risk for weight gain/metabolic side effects. Ultimately she decides to trial Latuda, as the depression is wearing her down and feels she could manage eating a meal if it may afford her the opportunity to feel better. She also says her ED wouldn't be as active an issue if she werent so depressed or anxious. ROS: pains/aches related to fibromylagia, intermittent headache (during groups, when focus waning). Denies SOB, CP, n/v, bowel changes, rash, fever, chills or other constitutional issues Mental Status Exam Mental Status Exam Narrative: Alert, oriented, in no acute distress. Calm, cooperative, engaged. No psychomotor agitation or neurovegetative retardation. Eye contact maintained. Mood depressed, affect constricted. Speech normal. Thought process linear, coherent. Thought content related to stressors, future-oriented, chronic SI with 2 different plans, but denies any intention. Denies any aggressive ideation or HI. No paranoia or delusional content elicited. No evidence of psychosis. Insight and judgment fair, fair but adequate. Diagnostics Vital Signs (24Hr): BMI result Body Mass Index 27.8 Assessment & Plan Assessment & Plan (1) Bipolar 2 disorder, major depressive episode: Status: Acute Code(s): F31.81 - Bipolar II disorder (2) Eating disorder, unspecified: Qualifiers: Eating disorder type: binge-eating purging type anorexia nervosa Qualified Code(s): F50.02 - Anorexia nervosa, binge eating/purging type Status: Acute Code(s): F50.9 - Eating disorder, unspecified (3) Other mixed anxiety disorders: Status: Acute Code(s): F41.3 - Other mixed anxiety disorders (4) Complex posttraumatic stress disorder: Status: Acute Code(s): F43.10 - Post-traumatic stress disorder, unspecified (5) Borderline personality disorder: Status: Acute Code(s): F60.3 - Borderline personality disorder Plan start lurasidone 20 mg x 4 days then increase to 40 mg daily with evening meal (>350 calories) for now continue quetiapine 150 mg (will cross taper if Latuda tolerated) contiue Lyrica 25 mg BID (will titrate HS dose if Seroquel is discontinued) pending naltrexone 50 mg filled (out of stock) continue Lamictal 150 mg BID continue lithium ER 900 mg qhs (pt reminded to avoid NSAID use and stay hydrated) continue venlafaxine ER 150 mg qd continue prazosin 2 mg BID hydroxyzine 10 mg TID prn anxiety order slip given for routine lab work, TFTs, Li and VPA levels, nutritional labs Vitals and urine tox screeen as indicated Reviewed EKG from 07/2023, QTc<450 ms although noted to be abnormal EKG - will order EKG Safety plan reviewed with patient and family (brother- Jono) continue to monitor closely Patient educated on: diagnosis and medication risk/benefits Informed Consent: understands Reason for contiued partial hosp. stay Substantial Risk for: harm to self, inability to function, rapid decompensation and med/psych decompensation Certification I certify that partial hospital treatment is medically necessary due to the symptoms and problems resulting from the patient's mental illness and the failure to treat the patient at the partial hospital level of care would likely result in the patient requiring inpatient psychiatric care which could not be prevented at a less intensive level of care. Total time managing care of this patient today __30__ minutes. Discharge Plan Discharge Attending provider: Sheila Pena Additional Instructions: Darren has an OP therapist, Sisi Bull, in which her next scheduled appointment is December 22, 2023 at 5 PM. Darren has a med provider, Caroline Cervantes, in which her next scheduled appointment is on February 16, 2024 at 10 AM. Medications: New naltrexone 50 mg tablet 50 mg PO DAILY Qty: 14 0RF lurasidone 40 mg tablet See Rx Instructions .ROUTE .COMPLEX Qty: 20 0RF Rx Instructions: take 1/2 tablet po daily with evening meal for 4 days, then increase to 1 tablet po daily with evening meal; must administer with food (at least 350 calories) No Action venlafaxine 150 mg Capsule,Extended Release 24hr 150 mg PO DAILY hydroxyzine HCl 10 mg Tablet 10 mg PO TID PRN (Reason: Anxiety) prazosin 2 mg Capsule 2 mg PO BEDTIME pregabalin [Lyrica] 25 mg Capsule 25 mg PO BID lithium carbonate 450 mg tablet extended release 900 mg PO BEDTIME Rx Instructions: Take 2 capsules at bedtime. quetiapine 150 mg tablet extended release 24 hr 150 mg PO BEDTIME lamotrigine 150 mg tablet 150 mg PO BID 14 Days Qty: 28 0RF Stand Alone Forms: Patient Portal Discharge page
--- NOTE | 2023-12-23 15:09 | HO.PHP ---
PHP staff member followed up with Darren after group 3 due to her making a comment of feeling worse. PHP staff member explored if there has been a change in plans. Darren reported that there is no change in plan and her sibling still has everything locked up. Darren talked about having friends coming over tonight and stated if her friends don't come over tonight then she will spend time with her sibling that lives with her. Darren expressed that she is safe and will be in the program tomorrow.
--- NOTE | 2023-12-24 12:47 | HO.PHP ---
A group member disclosed within the third group that Darren is promoting her peer support group and this group member informed individuals of where the peer group is being held. Darren has been informed in the past to focus on her treatment while in PHP opposed to promoting her peer group. Darren appears to not be refraining from this as encouraged to do so from her last PHP session. PHP staff members will further address.
--- NOTE | 2023-12-25 14:24 | PC.NURSE ---
Darren met with Dr Pena as patient stated in group that her textile technical officer is concerned about her and wants her to be medically evaluated in the emergency room today. Reporedly Ivy has not eaten in a week. She reports she ate a little yesterday. Dr Pena wants Darren to be evaluated in the ER medically. See Dr. Robbins note. Darren agreed to go to the ER. Her step father was waiting for her in the parking lot at [facility] and she told him she was not going home with him as she is getting evaluated in the emergency room medically. I escorted patient to the emergency room without incident. Darren checked in registration and told them she was there as she is feeling lightheaded and has stomach pain and has not eaten in a week. She also told them she is having chest pain. Ivy struggles with disordered eating. Darren spoke to her therapist to notify her what was happening as she had an appointment with her therapist today and requested a later appointment as she is in the ER waiting evaluation.
--- NOTE | 2023-12-25 23:42 | P.PNPSP_ITS ---
Subjective Subjective Date of Service: 12/25/23 Reason For Visit: MDD Interim History: Patient seen for follow-up. She reports yesterday feeling too overwhelmed . She met with her stepfather, she said she ate a few bites of her soup and salad, just enough to avoid her stepfather being concerned. States she returned home to find her dog ripped up her carpet. She also talked with her business continuity manager yesterday afternoon, who wants her to get evaluated by her PCP or medically cleared by the ED, however patient told her therapist she declines to go have this done. She denies eating anything today, and says she last ate yesterday with her stepfather. She admits she in fact, aside from the soup/salad, she has not eaten anything since Thursday. She adds that her ED is possibly the worst it has ever been . She says for that reason she has been off lithium since Thursday as well, as it causes her N/V if she takes on an empty stomach. Her mood is better today than yesterday, however she continues to report depressed mood and SI. She reports SI still high but says she does not have any plans or intention. She adds that I think I will always be a suicidal person but does not feel she is a risk to her own safety at this time. She says she has not engaged in SIBs since prior to starting at the program. SHe also notes that between the Eating Disorder and SIB, when one is stable, the other issue is problematic. GIven concerns for her restricting which could lead to acute medical complications, as well as the fact that she is not compliant with lithium, and will likely lead to worsening symptoms over the next several days, I strongly advise patient to go have her lab work done today. If she is unable to comply with getting lab work, then I would need to have her assessed by Crisis to see if she warrants a higher level of care, seeing as patient is putting herself at increasing risk of having a medical emergency (due to an electrolyte abnormality, for example) which could jeopardize her life. Patient ultimately agreed to have a medical evaluation done and was agreeable with having the nurse accompany her to the ED for support. She still has lab orders pending and I suggest she brings her slip over the ED with her, so she can have them added to whatever lab work is ordered by the ED. Medication Compliance: Yes Side effects from medications: No Attending Groups: Yes Review of Systems Acute medical concerns: No Mental Status Exam Mental Status Exam Narrative: Alert, oriented, in no acute distress. Patient Appearance: casually dressed, groomed Patient Behavior: Appropriate Mood Description: Depressed and Anxious Affect Description: variable, mostly depressed Patient Cognition Impaired: No Ability to Follow Directions: Good Speech Pattern: Clear, Spontaneous Speech and Coherent Memory Description: Intact Hallucinations: None Delusions: Not Present Thought Process: Linear, coherent Thought Content: chronic SI/plan without intention. Future-oriented, no paranoid or delusional content Judgment: Fair but adequate Insight: fair Diagnostics Vital Signs (24Hr): BMI result Body Mass Index 27.8 Assessment & Plan Assessment & Plan (1) Bipolar 2 disorder, major depressive episode: Status: Acute Code(s): F31.81 - Bipolar II disorder (2) Eating disorder, unspecified: Qualifiers: Eating disorder type: binge-eating purging type anorexia nervosa Qualified Code(s): F50.02 - Anorexia nervosa, binge eating/purging type Status: Acute Code(s): F50.9 - Eating disorder, unspecified (3) Complex posttraumatic stress disorder: Status: Acute Code(s): F43.10 - Post-traumatic stress disorder, unspecified (4) Borderline personality disorder: Status: Acute Code(s): F60.3 - Borderline personality disorder Plan agrees to go to the ED for medical evaluation for ED continue naltrexone 50 mg qhs continue quetiapine 150 mg (for sleep, not felt to contribute to mood stability) contiue Lyrica 25 mg BID (for fibromylagia) continue Lamictal 150 mg BID continue lithium ER 900 mg qhs continue venlafaxine ER 150 mg qd continue prazosin 2 mg BID hydroxyzine 10 mg TID prn anxiety pending routine lab work, TFTs, Li levels, nutritional labs - patient agrees to get them done today even if ED does not order any lab work safety plan reviewed continue to monitor closely Certification I certify that partial hospital treatment is medically necessary due to the symptoms and problems resulting from the patient's mental illness and the failure to treat the patient at the partial hospital level of care would likely result in the patient requiring inpatient psychiatric care which could not be prevented at a less intensive level of care. Total time managing care of this patient today ____ minutes. Discharge Plan Discharge Attending provider: Sheila Pena Additional Instructions: Darren has an OP therapist, Sisi Bull, in which her next scheduled appointment is December 22, 2023 at 5 PM. Darren has a med provider, Caroline Cervantes, in which her next scheduled appointment is on February 16, 2024 at 10 AM. Medications: New naltrexone 50 mg tablet 50 mg PO DAILY Qty: 14 0RF lurasidone 40 mg tablet See Rx Instructions .ROUTE .COMPLEX Qty: 20 0RF Rx Instructions: take 1/2 tablet po daily with evening meal for 4 days, then increase to 1 tablet po daily with evening meal; must administer with food (at least 350 calories) No Action venlafaxine 150 mg Capsule,Extended Release 24hr 150 mg PO DAILY hydroxyzine HCl 10 mg Tablet 10 mg PO TID PRN (Reason: Anxiety) prazosin 2 mg Capsule 2 mg PO BEDTIME pregabalin [Lyrica] 25 mg Capsule 25 mg PO BID lithium carbonate 450 mg tablet extended release 900 mg PO BEDTIME Rx Instructions: Take 2 capsules at bedtime. quetiapine 150 mg tablet extended release 24 hr 150 mg PO BEDTIME lamotrigine 150 mg tablet 150 mg PO BID 14 Days Qty: 28 0RF Stand Alone Forms: Patient Portal Discharge page Print Language: Haitian
--- NOTE | 2023-12-28 16:04 | HO.PHP ---
Darren was notified at 3:00 pm that her insurance continues to come up as inactive so pt will not be able to come in tomorrow. Pt stated she contacted her [facility] insurance this afternoon and was told the issue has been resolved so pt asked if her insurance can be checked again tomorrow, stated she would like to try to stay at [facility] for her last scheduled day if possible. Pt informed her insurance will be checked in the morning before programming, if active she will be contacted and will be able to attend tomorrow and discharge in person, pt aware she will discharge tomorrow either way. Pt reports she will also contact her insurance again in the morning. Pt appreciative, future oriented, desiring to attend [facility] tomorrow and pleasant in working with staff to resolve this issue.
--- NOTE | 2023-12-29 09:58 | HO.PHP ---
Pt's therapist, Sisi Bull contacted and informed of Darren Warren discharge from [facility] today. Voicemail left at .
--- NOTE | 2023-12-31 15:54 | HO.PHP ---
At roughly 3:00pm yesterday, comic writer called to follow-up with Darren regarding her health insurance being inactive. Pt was discharged from [facility] on 12/29/23 however [facility] wanted to support Darren in locating insurance moving forward, post PHP. Zora however reported she had confirmed her insurance is currently active and she declined the contact info to the Financial Counseling Department for assistance. Darren was appreciative.
== END 2023-12-25 23:59 | disposition home or self-care (01) ==
LOC: HO.PHPA 09:00
PROVIDERS: Visit Provider Psychiatry & Neurology Psychiatry
DX: F31.81 Bipolar II disorder (principal); F43.10 Post-traumatic stress disorder, unspecified; F41.3 Other mixed anxiety disorders; F50.02 Anorexia nervosa, binge eating/purging type; F60.3 Borderline personality disorder; Z79.899 Other long term (current) drug therapy
CPT/HCPCS: 90791; 90853

== ENCOUNTER 2023-12-25 14:10 | Emergency (ER) | payer OTHER, SELFPAY ==
[2023-12-25 14:21] VITALS: BP 148/113; PULSE 80; RESP 16; TEMP 36.8; O2SAT 99; BMI 27.4
--- NOTE | 2023-12-25 14:21 | ED_ITS ---
HPI - General Adult General Chief complaint: General Medical Stated complaint: headache, body pain, chest pain Time Seen by Provider: 12/25/23 18:07 Related Data Home Medications Medication Instructions Recorded Confirmed hydroxyzine HCl 10 mg tablet 10 mg PO TID PRN Anxiety 12/16/23 12/16/23 lithium carbonate 450 mg 900 mg PO BEDTIME 12/16/23 12/16/23 tablet,extended release prazosin 2 mg capsule 2 mg PO BEDTIME 12/16/23 12/16/23 pregabalin 25 mg capsule (Lyrica) 25 mg PO BID 12/16/23 12/16/23 quetiapine 150 mg tablet,extended 150 mg PO BEDTIME 12/16/23 12/16/23 release 24 hr venlafaxine 150 mg 150 mg PO DAILY 12/16/23 12/16/23 capsule,extended release 24 hr Previous Rx's Medication Instructions Recorded lamotrigine 150 mg tablet 150 mg PO BID 14 days #28 tabs 09/02/23 naltrexone 50 mg tablet 50 mg PO DAILY #14 tabs 12/18/23 lurasidone 40 mg tablet See Rx Instructions .Route 12/22/23 .COMPLEX #20 tabs Allergies Allergy/AdvReac Type Severity Reaction Status Date / Time amoxicillin Allergy Severe Vomiting Verified 03/24/23 17:04 [facility] Past Medical History Medical History (Updated 12/25/23 @ 18:08 by Ildefonso Sharp) Muscle twitching Anorexia nervosa, restricting type Tinnitus of both ears Splenomegaly Fibromyalgia PTSD (post-traumatic stress disorder) Generalized anxiety disorder Bipolar 2 disorder, major depressive episode Social History Social History Household Members: Family Household Members Other:: Sister Ani Housing: Apartment Housing Other:: STABLE HOUSING Do you presently have visiting nurse or other home services: No Alcohol intake: unknown Comment: Pt's discharge date is set for December 28 Patient Tobacco Use Status: Never used Tobacco e-Cigarette/Vaping Use: Never Used Second Hand Smoke Exposure: No Substance Use Type: Unknown service: No Sexual orientation: Straight/Heterosexual Physical Exam ED Vital Signs: Vital Signs - 24 hr 12/25/23 14:21 Temperature 98.2 F Pulse Rate 80 Respiratory Rate 16 Blood Pressure 148/113 H Pulse Oximetry 99 Oxygen Delivery Method Room Air BMI result Body Mass Index 27.4 Course Course Course Narrative: RME- 28 year old female presents for evaluation of weakness, intermittent chest pain. She endorses having an eating disorder and states she has not eaten since Thursday with the exception of a little soup yesterday. She reports her account maintenance representative and therapist wanted her to be medically evaluated. Plan for labs, EKG, viral swabs Medical Decision Making Lab Data 12/25/23 14:39 12/25/23 14:39 Labs: Lab Results 12/25/23 Range/Units 14:39 WBC 6.6 (4.8-10.8) X10*3/uL RBC 4.41 (4.20-5.50) X10*6/uL Hgb 12.5 (12.0-16.0) g/dl Hct 38.8 (37.0-47.0) % MCV 88.0 (80.0-98.0) fL MCH 28.3 (27.0-33.0) pg MCHC 32.2 (31.0-35.0) g/dl RDW 14.7 (11.0-16.0) % Plt Count 199 (160-400) X10*3/uL MPV 10.6 (9.4-12.3) fL Immature Gran % (Auto) 0.3 (0.0-0.4) % Neut % (Auto) 69.7 (45-73) % Lymph % (Auto) 25.6 (20-40) % [place] % (Auto) 3.9 (2-11) % Eos % (Auto) 0.2 (0-4) % Baso % (Auto) 0.3 (0-2) % Lymph # (Auto) 1.7 (1.2-4.9) X10*3/uL [place] # (Auto) 0.3 (0.1-1.2) X10*3/uL Eos # (Auto) 0.0 (0.0-0.4) X10*3/uL Baso # (Auto) 0.0 (0.0-0.2) X10*3/uL Abs Immat Gran (auto) 0.02 (0.00-0.03) X10*3/uL Absolute Neuts (auto) 4.6 (2.0-8.3) x10*3/uL Absolute Nucleated RBC 0.000 (0.0-0.012) X10*3/uL Nucleated RBC % (auto) 0.0 (0.0-0.2) /100WBC Sodium 144 (135-145) mmol/L Potassium 4.1 D (3.3-5.1) mmol/L Chloride 109 H (96-108) mmol/L Carbon Dioxide 25 (22-29) mmol/L Anion Gap 14 (12-20) BUN 8 L (9-16) mg/dL Creatinine 0.99 (0.5-1.4) mg/dL Estim Creat Clear Calc 80.9 Estimated GFR > 60 Random Glucose 86 (60-115) mg/dL Calcium 9.7 (8.4-10.2) mg/dL Magnesium 2.3 (1.6-2.6) mg/dL Total Bilirubin 0.6 (0.0-1.0) mg/dL AST 14 (5-31) U/L ALT 9 (0-31) U/L Alkaline Phosphatase 62 (39-117) U/L Troponin I High Sens < 2.7 (<3.5-17.0) ng/L Total Protein 7.5 (6.5-8.0) g/dL Albumin 4.8 (3.5-5.0) g/dL Lipase 28 (8-78) U/L Beta HCG, Quant < 2 mIU/mL Influenza Type A (PCR) NEGATIVE (Negative) Influenza Type B (PCR) NEGATIVE (Negative) RSV RNA Qual (PCR) NEGATIVE (Negative) SARS-CoV-2 RNA (RT-PCR) NEGATIVE (Negative) Discharge Plan Discharge Clinical Impression: Weakness Patient Disposition: Home, Self-Care Instructions: Weakness (ED) Additional Instructions: Your workup in the ER today was reassuring This includes all of your blood work Follow-up with your primary doctor, return for new or worsening symptoms Prescriptions: No Action venlafaxine 150 mg Capsule,Extended Release 24hr 150 mg PO DAILY hydroxyzine HCl 10 mg Tablet 10 mg PO TID PRN (Reason: Anxiety) prazosin 2 mg Capsule 2 mg PO BEDTIME pregabalin [Lyrica] 25 mg Capsule 25 mg PO BID lithium carbonate 450 mg tablet extended release 900 mg PO BEDTIME Rx Instructions: Take 2 capsules at bedtime. quetiapine 150 mg tablet extended release 24 hr 150 mg PO BEDTIME naltrexone 50 mg tablet 50 mg PO DAILY Qty: 14 0RF lurasidone 40 mg tablet See Rx Instructions .ROUTE .COMPLEX Qty: 20 0RF Rx Instructions: take 1/2 tablet po daily with evening meal for 4 days, then increase to 1 tablet po daily with evening meal; must administer with food (at least 350 calories) lamotrigine 150 mg tablet 150 mg PO BID 14 Days Qty: 28 0RF
--- NOTE | 2023-12-25 14:22 | ECG_ITS ---
Test Reason : PAIN Blood Pressure : / mmHG Vent. Rate : 082 BPM Atrial Rate : 082 BPM P-R Int : 136 ms QRS Dur : 086 ms QT Int : 364 ms P-R-T Axes : 009 048 053 degrees QTc Int : 425 ms Normal sinus rhythm Nonspecific T wave abnormality Abnormal ECG When compared with ECG of 18-AUG-2023 14:20, No significant change was found Referred By: Ildefonso Sharp Electronically Signed By:CARMEN XIE
[2023-12-25 14:46] LABS: MANUAL DIFF FLAG NO
[2023-12-25 14:47] LABS: Basophils Percent Auto 0.3 % (0-2); Eosinophils Percent Auto 0.2 % (0-4); Hematocrit 38.8 % (37.0-47.0); Hemoglobin 12.5 g/dl (12.0-16.0); Imm Gran Abs Auto 0.02 X10*3/uL (0.00-0.03); Imm Gran Pct Auto 0.3 % (0.0-0.4); Lymphocytes Absolute Auto 1.7 X10*3/uL (1.2-4.9); Lymphocytes Percent Auto 25.6 % (20-40); Mean Corpuscular HGB Conc 32.2 g/dl (31.0-35.0); Mean Corpuscular Hemoglobin 28.3 pg (27.0-33.0); Mean Platelet Volume 10.6 fL (9.4-12.3); Monocytes Absolute Auto 0.3 X10*3/uL (0.1-1.2); Monocytes Percent Auto 3.9 % (2-11); Neutrophils Absolute Auto 4.6 x10*3/uL (2.0-8.3); Neutrophils Percent Auto 69.7 % (45-73); Platelet Count 199 X10*3/uL (160-400); Red Blood Count 4.41 X10*6/uL (4.20-5.50); Red Cell Distribution Width 14.7 % (11.0-16.0); White Blood Count 6.6 X10*3/uL (4.8-10.8)
[2023-12-25 15:12] LABS: Alanine Aminotransferase 9 U/L (0-31); Albumin Level 4.8 g/dL (3.5-5.0); Alkaline Phosphatase 62 U/L (39-117); Anion Gap 14 (12-20); Aspartate Amino Transferase 14 U/L (5-31); Bilirubin Total 0.6 mg/dL (0.0-1.0); Blood Urea Nitrogen 8 mg/dL (9-16); Calcium 9.7 mg/dL (8.4-10.2); Carbon Dioxide 25 mmol/L (22-29); Chloride 109 mmol/L (96-108); Creatinine Clr Calc Pharmacy 80.9; Estimated Glomerular Filt Rate > 60; Glucose Random 86 mg/dL (60-115); Lipase 28 U/L (8-78); Magnesium 2.3 mg/dL (1.6-2.6); Potassium 4.1 mmol/L (3.3-5.1); Sodium 144 mmol/L (135-145); Total Protein 7.5 g/dL (6.5-8.0)
[2023-12-25 15:15] LABS: HCG Quantitative < 2 mIU/mL
[2023-12-25 15:17] LABS: Troponin-I High Sensitivity < 2.7 ng/L (<3.5-17.0)
[2023-12-25 15:33] LABS: Influenza A PCR NEGATIVE (Negative); Influenza B PCR NEGATIVE (Negative); Resp Syncy Virus RNA Qual PCR NEGATIVE (Negative); SARS COV2 PCR INHOUSE NEGATIVE (Negative)
== END 2023-12-25 18:26 | disposition home or self-care (01) ==
PROVIDERS: Physician Assistant; Emergency Provider Emergency Medicine
DX: R53.1 Weakness (principal); R07.9 Chest pain, unspecified; Z11.52 Encounter for screening for COVID-19; Z20.828 Contact with and (suspected) exposure to other viral communicable diseases
CPT/HCPCS: 0241U; 80053; 83690; 83735; 84484; 84702; 85025; 93005; 99283

== ENCOUNTER → 2023-12-25 14:22 | Outpatient (BNV) | payer OTHER, SELFPAY | PROVIDERS: Visit Provider Internal Medicine | DX: R94.31 Abnormal electrocardiogram [ECG] [EKG] (principal) | CPT/HCPCS: 93010 ==